=== PATIENT | female | born 1945 | race Caucasian/White ===

== ENCOUNTER → 2021-06-25 10:41 | Outpatient (CLI) | payer MEDICARE, SELFPAY ==
--- NOTE | 2021-06-25 10:56 | ART_ITS ---
Version 2 Reason For Study: PVD Procedure A bilateral lower extremity continuous wave Doppler with analog waveform analysis and ankle brachial indexes. Left Segmental Pressures Left brachial= 153mmHg. Left posterior tibial artery = 232mmHg. Left dorsalis pedis artery = 203mmHg. Left digit = 187 mmHg. The left dorsalis pedis waveforms are triphasic. The left posterior tibial artery waveforms are triphasic. Right Segmental Pressures Right brachial= 199mmHg. Right posterior tibial artery = 237mmHg. Right dorsalis pedis artery = 207mmHg. Right digit = 170 mmHg. The right dorsalis pedis waveforms are triphasic. The right posterior tibial artery waveforms are triphasic. Indices The right ankle brachial index by the posterior tibial artery is 1.19. The right ankle brachial index by the dorsalis pedis is 1.04. The right digital-brachial index is .85. The left ankle brachial index by the posterior tibial artery is 1.17. The left ankle brachial index by the dorsalis pedis is 1.02. The left digital-brachial index is .94. VL/Ankle Brachial Index Interpretation Summary Triphasic Doppler waveforms are noted at ankle level bilaterally. Resting ankle -bracial indices are normal bilaterally. Digital-brachial indices are normal bilaterally. There is no evidence of significant arterial occlusive disease in the lower ext remities bilaterally. Incidental note is made of a differential in brachial pressures bilaterally of more than 40 mmHg. Clinical correlation is advised. Ordering Physician: LANETTE CRUM Performed By: Oneil Bentley RVT
== END ==
DX: I73.9 Peripheral vascular disease, unspecified (principal)
CPT/HCPCS: 93922

== ENCOUNTER 2021-09-23 22:37 | Inpatient (IN) | payer MEDICARE, SELFPAY ==
[2021-09-23 22:37] VITALS: BP 171/117; PULSE 125; RESP 20; TEMP 36.2; O2SAT 84; BMI 29.2
[2021-09-23 22:45] VITALS: O2SAT 89
--- NOTE | 2021-09-23 22:50 | RAD_ITS ---
HISTORY: cough, SOB EXAMINATION/TECHNIQUE: XR Chest 1 View: Portable upright AP chest x-ray COMPARISON: None FINDINGS: LINES/DEVICES: None. LUNGS: Mild vascular prominence with hazy bilateral airspace opacities, probable left pleural effusion. MEDIASTINUM AND CARDIOVASCULAR STRUCTURES: Cardiomegaly. Central airways and mediastinal contour are unremarkable. BONES AND SOFT TISSUES: No acute bony abnormalities. RAD/Chest 1 View (Portable) IMPRESSION: Cardiomegaly with pulmonary edema and probable left pleural effusion. at 0026 Reported and signed by: Ventura Pedersen MD Electronically Signed: Ventura Pedersen MD at 0:25 EST Tel , Service support ,
--- NOTE | 2021-09-23 22:50 | EKG12_ITS ---
Test Reason : SOB Blood Pressure : / mmHG Vent. Rate : 126 BPM Atrial Rate : 126 BPM P-R Int : 112 ms QRS Dur : 082 ms QT Int : 398 ms P-R-T Axes : 000 057 059 degrees QTc Int : 576 ms Sinus tachycardia Otherwise normal ECG Confirmed by EROS SHARMA, MELO ([id number]), newspaper managing editor ADY ANN ([id number]) on 09/25/2021 11:44:11 AM Referred By: FIONA Confirmed By:MELO COONEY MD
--- NOTE | 2021-09-23 22:52 | ED.VIS.DYS ---
HPI History of Present Illness Chief Complaint: Shortness of Breath Informant: patient Narrative Narrative: Patient presents with cough and dyspnea. She states that about 2 days ago she started with some nasal congestion. It rapidly moved into a cough. She is now bringing up some yellow sputum. She is short of breath. She denies history of pulmonary disease. She is a remote smoker. She is not having chest pain. She has some mild chronic leg swelling but there is no change. Never had a DVT or PE. She has had elevated blood pressure and heart rate for a while. She evidently had a UTI and was on antibiotics a month or so ago and has had problems controlling blood sugars, heart rate and blood pressure ever since. She has had her Covid vaccines. She states they were a while ago and does not remember the exact date. She does not know anyone else who is ill. Nothing makes her symptoms better or worse. Patient has not lost taste or smell. She does not have myalgias. No known Covid exposure. Past medical history: Diabetes and hypertension Medications include lisinopril, hydralazine, glimepiride, Actos No known drug allergies No recent surgeries Lives with family, Quit smoking many years ago. PFSH PFS Home Medications aspirin 81 mg PO DAILY 09/24/21 [History Last Taken Unknown] glyburide 10 mg DAILY 09/24/21 [History Last Taken Unknown] hydralazine 10 mg PO 4X/DAY 09/24/21 [History Last Taken Unknown] lisinopril 20 mg DAILY 09/24/21 [History Last Taken Unknown] pioglitazone [Actos] 30 mg DAILY 09/24/21 [History Last Taken Unknown] Allergy/AdvReac Type Severity Reaction Status Date / Time No Known Allergies Allergy Verified 09/23/21 22:39 Family History Other Diabetes Heart disease Surgical History (Updated 09/24/21 @ 03:[address] Conor Franklin MD) H/O carotid endarterectomy Social History Smoking Status: Former smoker ROS ROS ED Constitutional Constitutional ED: Reports chills Eyes Eyes: Denies blurry vision ENT ENT ED: Reports rhinorrhea; Denies sore throat Cardiovascular Cardiovascular: Denies chest pain or palpitations Respiratory/Chest Respiratory/Chest: Reports cough, dyspnea, dyspnea on exertion and sputum Gastrointestinal Gastrointestinal: Denies abdominal pain, diarrhea, nausea or vomiting Genitourinary Genitourinary ED: Denies dysuria or hematuria Musculoskeletal Musculoskeletal: Denies myalgias Integumentary Denies rash Neurologic Neurologic: Denies headache(s) or weakness Endocrine Endocrinology: Denies polyuria Hematologic/Lymphatic Hematologic/Lymphatic: Denies easy bleeding or easy bruising Allergic/Immunologic Allergic/Immunologic ED: Denies mouth swelling or urticaria EXAM Physical Exam Const Vital Signs: 09/23/21 22:37 09/23/21 22:45 09/23/21 23:03 Temperature 97.2 F L Temperature Source Temporal Pulse Rate 125 H 124 H Respiratory Rate 20 H 20 H Respiratory Effort Respiratory Depth Respiratory Pattern Tachypnea Blood Pressure 171/117 H Blood Pressure Mean 135 Pulse Ox 84 89 Oxygen Delivery Method Room Air Nasal Cannula Oxygen Flow Rate (L/min) 3 09/23/21 23:42 09/23/21 23:56 09/24/21 01:02 Temperature 98.9 F Temperature Source Temporal Pulse Rate 123 H 115 H Respiratory Rate 22 H 22 H Respiratory Effort Short of Breath Labored Accessory Muscle Use Respiratory Depth Deep Respiratory Pattern Normal Blood Pressure 128/99 H Blood Pressure Mean 108 Pulse Ox 97 Oxygen Delivery Method Nasal Cannula Nasal Cannula Oxygen Flow Rate (L/min) 3 3 09/24/21 02:19 09/24/21 03:00 Temperature 99.1 F 99.1 F Temperature Source Temporal Temporal Pulse Rate 106 H 108 H Respiratory Rate 32 H 32 H Respiratory Effort Respiratory Depth Respiratory Pattern Blood Pressure 108/89 H 108/89 H Blood Pressure Mean 95 95 Pulse Ox 98 100 Oxygen Delivery Method Nasal Cannula Nasal Cannula Oxygen Flow Rate (L/min) 3 3 Patient does have increased work of breathing but can carry on a relatively normal conversation. Positive well nourished, well developed and obese General Appearance ED: well developed Nutritional Appearance: obese HEENT Reports moist mucous membranes atraumatic Eyes General Eye ED: Negative for pale conjunctiva or scleral icterus Neck no meningeal signs and No no JVD Resp No normal respiratory effort and No clear to auscultation bilaterally Resp Narrative: Increased respiratory effort and respiratory rate. She has rhonchi bilaterally but more on the right base. There is a hint of expiratory wheeze also. Effort and Inspection: Negative for pain with movement Auscultation: rhonchi, wheezes and diminished lung sounds; Negative for rales Cardio regular rhythm Rate: tachycardic GI non-tender and non-distended Auscultation: normoactive bowel sounds Palpation: soft Back/Spine no CVA tenderness and normal to inspection Extremity Extremity Narrative: Bilateral +1 edema that both her and her daughter state is normal. No asymmetry. No tenderness along the venous system or distended veins. There is some mild chronic venous stasis changes. General Extremety ED: Yes edema General Extremity: edema Neuro oriented x3 Neuro Narrative: Patient is not at all sleepy or lethargic. I mentioned to the patient that with her low oxygen saturations and illness there is a fair chance she will be admitted. She was not happy about this as an option. I explained we still need to do a work-up and treatment and we will address this as we get more information. Sensorium / Orientation: alert; Negative for lethargic or stuporous Psych mental status grossly normal Skin Lesions: no lesions Rashes: no rashes MDM MDM MDM Narrative Medical decision making narrative: Patient's blood work showed essentially a normal CBC. Electrolytes showed minimal elevation in the creatinine. Lactic acid is normal. Troponin is normal. Sodium has a nonspecific minimal decrease. BNP was high but not markedly high for her age. X-ray showed some signs of more consistent with pulmonary edema and slight effusion. Since the patient is tachypneic, tachycardic, hypoxic and positive Covid we did do a CTA of her chest. No pulmonary embolus was seen. Changes were more consistent with CHF than with Covid on her CT though. She was given a small dose of Lasix as she has never been on this before. The combination of the meds she has been given in time have helped. Her heart rate is down significantly. Her blood pressure is down but she is not hypotensive. Her oxygen level is improved on 3 L and she feels more comfortable. We tried to walk her but she was just too weak to get up. I do not think she would be able to maintain saturations walking anyway. She desats off oxygen just in the bed. I have hospitalist on page regarding admission. I will discuss possibility of adding a PCR test also. Lab Data Attestation: I reviewed the patient's lab results. Labs: Laboratory Results - last 24 hr 09/23/21 09/23/21 09/23/21 23:05 23:05 23:05 WBC 5.8 RBC 5.16 Hgb 14.6 Hct 45.3 MCV 87.8 MCH 28.3 MCHC 32.2 RDW Std Deviation 44.6 H RDW Coeff of Gerard 13.8 Plt Count 100 L MPV 11.6 Immature Gran % (Auto) 0.300 Neut % (Auto) 83.5 H Lymph % (Auto) 8.7 L [place] % (Auto) 7.2 Eos % (Auto) 0.0 Baso % (Auto) 0.3 Absolute Neuts (auto) 4.9 Absolute Lymphs (auto) 0.51 L Nucleated RBC % 0 Differential Comment SCANNED Sodium 133 L Potassium 3.8 Chloride 97 L Carbon Dioxide 26.0 Anion Gap 10 BUN 16 Creatinine 1.16 H Estim Creat Clear Calc 35.20 Est GFR (MDRD) Af Amer 59 L Est GFR (MDRD) Non-Af 49 L BUN/Creatinine Ratio 13.8 Glucose 334 H Lactic Acid 1.8 Calcium 8.8 Troponin I High Sens 50 B-Natriuretic Peptide 09/23/21 23:05 WBC RBC Hgb Hct MCV MCH MCHC RDW Std Deviation RDW Coeff of Gerard Plt Count MPV Immature Gran % (Auto) Neut % (Auto) Lymph % (Auto) [place] % (Auto) Eos % (Auto) Baso % (Auto) Absolute Neuts (auto) Absolute Lymphs (auto) Nucleated RBC % Differential Comment Sodium Potassium Chloride Carbon Dioxide Anion Gap BUN Creatinine Estim Creat Clear Calc Est GFR (MDRD) Af Amer Est GFR (MDRD) Non-Af BUN/Creatinine Ratio Glucose Lactic Acid Calcium Troponin I High Sens B-Natriuretic Peptide 488.1 H Radiography Diagnostic Testing: Clinical Impression(s) from Imaging Studies Chest X-Ray 09/23/21 22:50 IMPRESSION: Cardiomegaly with pulmonary edema and probable left pleural effusion. at 0026 Reported and signed by: Ventura Pedersen MD Electronically Signed: Ventura Pedersen MD at 0:25 EST Tel , Service support , Chest CTA 09/24/21 00:45 IMPRESSION: Congestive heart failure. There is no demonstrated pulmonary embolism or arterial dissection. Electronically Signed: Sandra Nuñez MD at 1:42 EST Tel , Service support , EKG Initial EKG: Comments: EKG done for dyspnea read by me shows sinus rhythm with tachycardic rate at 126. No ectopy. Nonspecific ST and T wave flattening but no elevation or depression. FL interval, QRS duration are normal but QTc is long at 576 Discharge Plan Dx/Rx/DC Orders Clinical Impression: Hypoxia, CHF (congestive heart failure), SARS-CoV-2 positive Disposition Disposition: Acute Care [facility] Discharge Date/Time: 09/24/21 03:54
[2021-09-23 23:03] VITALS: PULSE 124; RESP 20
[2021-09-23] MEDS: Ipratropium/Albuterol Sulfate 3 ML AMPUL.NEB INHALATION (23:03)
[2021-09-23 23:17] LABS: Absolute Lymphocyte Count 0.51 X10^3/uL (0.83-4.51); Absolute Neutrophil Count 4.9 X10^3/uL (2.0-7.7); Basophil# 0.02 X10^3/uL; Basophil% 0.3 % (0-1); Hematocrit 45.3 % (37-47); Hemoglobin 14.6 g/dL (12.0-15.0); Lymphocyte # 0.51 X10^3/ul (0.83-4.51); Lymphocyte % 8.7 % (19-41); Mean Corp Hgb Conc 32.2 g/dL (32-36); Mean Corpuscular Hgb 28.3 pg (27.0-32.0); Mean Corpuscular Volume 87.8 fL (81-99); Mean Platelet Vol. 11.6 fl (6.2-12.0); Monocyte# 0.42 X10^3/uL; Monocyte% 7.2 % (0-10); NRBC Flagged by Analyzer 0 % (0-5); Neutrophil # 4.87 X10^3/uL (2.7-7.7); Neutrophil % 83.5 % (47-70); POSITIVE DIFFERENTIAL YES; Platelet Count 100 K/mm3 (150-450); RBC Distribution Width CV 13.8 % (11.6-14.6); RBC Distribution Width SD 44.6 fl (35.1-43.9); Red Blood Count 5.16 M/mm3 (4.2-5.4); White Blood Count 5.8 K/mm3 (4.4-11.0)
[2021-09-23 23:35] LABS: Anion Gap 10 (5-15); BUN 16 mg/dL (7-18); BUN/Creat Ratio 13.8 RATIO (10-20); Calcium,Total 8.8 mg/dL (8.5-10.1); Chloride 97 mmol/L (98-107); Creatinine, Serum 1.16 mg/dL (0.55-1.02); EST Glomerular Filtration Rate 49 mL/min (>60); Est Glom Filt Rate - Afr Amer 59 mL/min (>60); Glucose 334 mg/dL (74-106); Potassium 3.8 mmol/L (3.5-5.1); Sodium Level 133 mmol/L (136-145); Troponin-I HS 50 pg/mL (3.0-54.0)
[2021-09-23 23:42] VITALS: O2SAT 93
--- NOTE | 2021-09-23 23:44 | ED.RN ---
pt. refused Covid swab. States they want their doctor at [facility] to do it.
[2021-09-23 23:47] LABS: Differential Indicated SCAN CRITERIA MET
[2021-09-23 23:50] LABS: Lactic Acid 1.8 mmol/L (0.4-1.9)
--- NOTE | 2021-09-23 23:54 | ED.RN ---
After conversation about need for Covid swab for admission or transfer, pt. agreed to allow nurse to test for Covid.
[2021-09-23] MEDS: Albuterol 2.5 MG/3 ML VIAL.NEB. INHALATION (23:55)
[2021-09-23 23:56] VITALS: PULSE 123; RESP 22
[2021-09-24] VITALS (20 sets, daily range): BP systolic 108–159; BP diastolic 63–99; PULSE 70–115; RESP 16–32; TEMP 36.7–37.4; O2SAT 93–100; BMI 37.1
[2021-09-24 00:15] LABS: Differential Comment SCANNED
[2021-09-24 00:25] LABS: BNP,B-Type NATRIURETIC PEPTIDE 488.1 pg/mL (0-100)
--- NOTE | 2021-09-24 00:45 | CT_ITS ---
STUDY: CTA CHEST REASON FOR EXAM: Female, 76 years old. ?PE RADIATION DOSAGE (If Supplied By Facility): CTDIvol = ( 12.23 ) mGy, DLP = ( 472.18 ) mGycm TECHNIQUE: The examination was performed with the intravenous administration of IV 100mL Isovue-370. Post-processing of the angiographic images was performed, with multiplanar reformation and 3D reconstruction. Individualized dose optimization techniques were used for this CT. COMPARISON: None. FINDINGS: Normal enhancement of the main pulmonary artery and right and left pulmonary arteries. Normal enhancement of the bilateral peripheral pulmonary arteries. There is no demonstrated pulmonary embolism. Normal thoracic aorta and visualized great vessels. There is no demonstrated aortic dissection. Normal heart and pericardium. Normal mediastinum. Normal hilar regions. Normal visualized trachea and bronchi. The lungs are well expanded. There is diffuse interstitial thickening in both lungs more prominent in the lung bases consistent with pulmonary edema. Small bilateral pleural effusions. Normal chest wall structures. Normal osseous structures. Normal visualized upper abdomen. CT/CTA Chest W/WO Contrast IMPRESSION: Congestive heart failure. There is no demonstrated pulmonary embolism or arterial dissection. Electronically Signed: Sandra Nuñez MD at 1:42 EST Tel , Service support ,
[2021-09-24] MEDS: dexAMETHasone 10 MG/ML Vial 6 MG IV (01:01)
[2021-09-24] MEDS: Furosemide 20 MG/2 ML VIAL IV ×3 (02:15→16:35)
--- NOTE | 2021-09-24 03:10 | PCM.HP.STD ---
[facility] - General General Date of Admission: 09/24/21 HPI Narrative PITER ZUÑIGA, is a 76 F with a significant history of hypertension and diabetes mellitus who presents to the emergency department with 1 day history of persistent severe shortness of breath. A day before her shortness of breath she had a productive cough of yellow sputum. She still continues to have a productive cough. She has anorexia. She denies loss of taste or smell. She reports having COVID-19 vaccination a couple of months ago. She had only 1 dose of the vaccination. She is unable to tell which of the covid vaccination she had. Patient is not interested in having a COVID booster shot. She denies myalgia. She reports fatigue. At emergent department patient was hypoxic and required supplemental oxygenation. An attempt was made for patient to walk at the ED but patient was too weak even to get up. [facility] Home Medications aspirin 81 mg PO DAILY 09/24/21 [History Last Taken Unknown] glyburide 10 mg DAILY 09/24/21 [History Last Taken Unknown] hydralazine 10 mg PO 4X/DAY 09/24/21 [History Last Taken Unknown] lisinopril 20 mg DAILY 09/24/21 [History Last Taken Unknown] pioglitazone [Actos] 30 mg DAILY 09/24/21 [History Last Taken Unknown] Allergy/AdvReac Type Severity Reaction Status Date / Time No Known Allergies Allergy Verified 09/23/21 22:39 Family History Other Diabetes Heart disease Surgical History H/O carotid endarterectomy Social History Smoking Status: Former smoker ROS ROS Narrative Constitutional: Reports fatigue. Reports chills. Reports anorexia. Eyes: Denies blurry vision, change in eye color, change in vision, discharge from eye(s), double vision, erythema, eye pain, loss of vision or other HEENT: Denies abnormal hearing, dysphagia, ear pain, epistaxis, headache(s), hearing loss, sore throat or other Cardiovascular: Denies chest pain or palpitations. Respiratory/Chest: Reports coughing. Reports yellowish sputum production. Reports wheezing. Gastrointestinal: Denies abdominal pain, coffee ground emesis, constipation, diarrhea, dyspepsia, hematemesis, hematochezia, loose stools, melena, nausea, vomiting or other Genitourinary: Denies burning urination, difficulty urinating, dysuria, hematuria, nocturia, urinary frequency, urinary hesitancy, urinary incontinence, urinary urgency or other Musculoskeletal: Denies arthralgias, back pain, joint pain, joint stiffness, joint swelling, myalgias, neck pain or other Neurologic: Denies abnormal gait, abnormal speech, confusion, disequilibrium, dizziness, focal weakness, headache(s), numbness, paresthesias, seizure-like activity, seizures, syncope, tingling, tremor(s) or other Psychiatric: Denies anxiety, depression, homicidal ideation, suicidal ideation or other Endocrinology: Denies change in body appearance, cold intolerance, excessive sweating, heat intolerance, polydipsia, polyuria or other Hematologic/Lymphatic: Denies anemia, easy bleeding, easy bruising, lymphadenopathy or other Integumentary: Denies rashes Allergic/Immunologic: Denies rhinitis, hives, eczema, asthma or other Vital Signs Vital Signs Vital Signs: 09/23/21 22:37 09/23/21 22:45 09/23/21 23:03 Temperature 97.2 F L Temperature Source Temporal Pulse Rate 125 H 124 H Respiratory Rate 20 H 20 H Respiratory Effort Respiratory Depth Respiratory Pattern Tachypnea Blood Pressure 171/117 H Blood Pressure Mean 135 Pulse Ox 84 89 Oxygen Delivery Method Room Air Nasal Cannula Oxygen Flow Rate (L/min) 3 09/23/21 23:42 09/23/21 23:56 09/24/21 01:02 Temperature 98.9 F Temperature Source Temporal Pulse Rate 123 H 115 H Respiratory Rate 22 H 22 H Respiratory Effort Short of Breath Labored Accessory Muscle Use Respiratory Depth Deep Respiratory Pattern Normal Blood Pressure 128/99 H Blood Pressure Mean 108 Pulse Ox 97 Oxygen Delivery Method Nasal Cannula Nasal Cannula Oxygen Flow Rate (L/min) 3 3 09/24/21 02:19 Temperature 99.1 F Temperature Source Temporal Pulse Rate 106 H Respiratory Rate 32 H Respiratory Effort Respiratory Depth Respiratory Pattern Blood Pressure 108/89 H Blood Pressure Mean 95 Pulse Ox 98 Oxygen Delivery Method Nasal Cannula Oxygen Flow Rate (L/min) 3 Weight Weight: 74.843 kg Body Mass Index (BMI) 29.2 Physical Exam Narrative Physical exam: General: Well-nourished, well-developed. Head: Normocephalic, atraumatic, no tenderness Eyes: PERRLA, EOMI ENT, no trauma, moist mucous membranes, no rhinorrhea Neck: Nontender, full range of motion, no spinal tenderness, deformities, step-off CVS: Tachycardia, S1-S2 present. No murmur, gallop or rub. Respiratory : Tachypnea, wheezes and rhonchi. Chest wall nontender. Abdomen: Soft, nontender, nondistended, normal bowel sounds, no masses : Deferred Back: Nontender, no CVA tenderness, no midline spinal tenderness, deformities, step-offs Extremities: Nontender full range of motion, no trauma Skin: Normal color, no trauma, abrasions Neuro: Alert, oriented, cranial nerves II through XII grossly intact. Psychiatry: Normal mood. Normal affect. Not depressed. Not anxious. Results Lab / Micro Data Result Diagrams: 09/23/21 23:05 09/23/21 23:05 Labs: Laboratory Results - last 24 hr 09/23/21 23:05: WBC 5.8, RBC 5.16, Hgb 14.6, Hct 45.3, MCV 87.8, MCH 28.3, MCHC 32.2, RDW Std Deviation 44.6 H, RDW Coeff of Gerard 13.8, Plt Count 100 L, MPV 11.6, Immature Gran % (Auto) 0.300, Neut % (Auto) 83.5 H, Lymph % (Auto) 8.7 L, Davis % (Auto) 7.2, Eos % (Auto) 0.0, Baso % (Auto) 0.3, Absolute Neuts (auto) 4.9, Absolute Lymphs (auto) 0.51 L, Nucleated RBC % 0, Differential Comment SCANNED 09/23/21 23:05: Sodium 133 L, Potassium 3.8, Chloride 97 L, Carbon Dioxide 26.0, Anion Gap 10, BUN 16, Creatinine 1.16 H, Estim Creat Clear Calc 35.20, Est GFR (MDRD) Af Amer 59 L, Est GFR (MDRD) Non-Af 49 L, BUN/Creatinine Ratio 13.8, Glucose 334 H, Calcium 8.8, Troponin I High Sens 50 09/23/21 23:05: Lactic Acid 1.8 11/24/21 23:05: B-Natriuretic Peptide 488.1 H Micro: Microbiology 09/23/21 23:51 Nasal Secretion SARS-CoV-2 Antigen (Rapid) - Final SARS-CoV-2 (COVID 19) Radiology Impression Chest X-Ray 09/23/21 22:50 IMPRESSION: Cardiomegaly with pulmonary edema and probable left pleural effusion. at 0026 Reported and signed by: Ventura Pedersen MD Electronically Signed: Ventura Pedersen MD at 0:25 EST Tel , Service support , Chest CTA 09/24/21 00:45 IMPRESSION: Congestive heart failure. There is no demonstrated pulmonary embolism or arterial dissection. Electronically Signed: Sandra Nuñez MD at 1:42 EST Tel , Service support , Assessment & Plan Assessment/Plan (1) Acute hypoxemic respiratory failure: (2) Bronchitis due to COVID-19 virus: (3) CHF (congestive heart failure): QUALIFIERS: Heart failure chronicity: acute Heart failure type: unspecified Qualified Code(s): I50.9 - Heart failure, unspecified (4) SARS-CoV-2 positive: PLAN: Acute hypoxemic respiratory failure Likely secondary to SARS pneumonia and congestive heart failure Rapid Covid antigen at the emergent department was positive. PCR Covid was ordered emergency department for confirmation. PCR Covid is pending. Review of labs showed normal white counts but with neutrophilia and lymphopenia. Platelet count is mildly decreased at 100. Chest x-ray and chest CTA image was independently interpreted and agree with radiologist interpretation above. Chest x-ray and chest CTA showed vascular congestion and pulmonary edema with small bilateral pleural effusion. Received Lasix IV at the emergency department and continued. Supplemental potassium ordered. Received Decadron emergency department and continued. Daily weights ordered. Fluid restriction ordered. Strict intake and outputs ordered. Diabetes mellitus Patient with hyperglycemia on presentation Glipizide continued. Progress is on hold secondary to pulmonary edema. Basal insulin ordered. Accu-Chek QA CHS with correction scale insulin ordered. Cardiac with calorie control diet ordered. Hypertension Blood pressure is not within goal Lisinopril and hydralazine continued. Trend blood pressure and adjust blood pressure medications. DVT prophylaxis: Subcutaneous Lovenox ordered. Of note platelet count is 100. Trend CBC and titrate anticoagulants as necessary. Charges/Coding Visit Charges Inpatient E&M: 38514 Init Hosp L3
[2021-09-24] MEDS: guaiFENesin 600 MG Tablet PO ×3 (04:43→22:06)
[2021-09-24 06:29] LABS: Absolute Lymphocyte Count 0.31 X10^3/uL (0.83-4.51); Absolute Neutrophil Count 3.3 X10^3/uL (2.0-7.7); Hematocrit 42.1 % (37-47); Hemoglobin 13.6 g/dL (12.0-15.0); Lymphocyte # 0.31 X10^3/ul (0.83-4.51); Lymphocyte % 8.3 % (19-41); Mean Corp Hgb Conc 32.3 g/dL (32-36); Mean Corpuscular Hgb 27.9 pg (27.0-32.0); Mean Corpuscular Volume 86.4 fL (81-99); Mean Platelet Vol. 10.8 fl (6.2-12.0); Monocyte# 0.13 X10^3/uL; Monocyte% 3.5 % (0-10); NRBC Flagged by Analyzer 0 % (0-5); Neutrophil # 3.26 X10^3/uL (2.7-7.7); Neutrophil % 87.7 % (47-70); POSITIVE DIFFERENTIAL YES; Platelet Count 102 K/mm3 (150-450); RBC Distribution Width SD 44.8 fl (35.1-43.9); Red Blood Count 4.87 M/mm3 (4.2-5.4); White Blood Count 3.7 K/mm3 (4.4-11.0)
[2021-09-24 06:41] LABS: Differential Indicated SCAN CRITERIA MET
[2021-09-24 07:05] LABS: Bedside Glucose 291 mg/dL (70-110)
--- NOTE | 2021-09-24 07:07 | ECHOD_ITS ---
Reason For Study: CHF Procedure This was a limited 2D transthoracic echocardiogram. The exam was abbreviated due to the COVID 19 protocol. Exam performed portable in patient room. Left Ventricle Normal LV size. The estimated ejection fraction is 35 %. There is moderate global hypokinesis of the left ventricle. Right Ventricle Normal RV size. Mild global right ventricular systolic dysfunction. Atria Normal left atrium. Normal right atrium. Mitral Valve Normal mitral valve. Mild (1+) eccentric mitral valve insufficiency. Tricuspid Valve Normal tricuspid valve. Mild tricuspid valve insufficiency. Pulmonary artery systolic pressure is 34 mmHg. Aortic Valve Trisinus/trileaflet aortic valve. Great Vessels Normal aortic root. Pericardium/Pleural No pericardial effusion. MMode/2D Measurements & Calculations LVIDd: 5.4 cm IVSd: 0.99 cm LVIDs: 4.6 cm LVPWd: 1.3 cm FS: 15.7 % Doppler Measurements & Calculations TR max bronson: 270.1 cm/sec TR max P.2 mmHg ECHO/Echo Complete Interpretation Summary Normal LV size. The estimated ejection fraction is 35 %. There is moderate global hypokinesis of the left ventricle. Pulmonary artery systolic pressure is 34 mmHg. Ordering Physician: Annabelle Patel Performed By: Patricia Meraz, SANDEE, RVT
[2021-09-24 07:25] LABS: ALB/GLOB Ratio 0.8 RATIO (0.9-2.4); AST(SGOT) 49 U/L (15-37); Alanine Aminotransfer ALT/SGPT 54 U/L (13-56); Albumin, Serum 2.9 g/dL (3.2-5.0); Alkaline Phosphatase 97 U/L (45-117); Anion Gap 10 (5-15); BUN 21 mg/dL (7-18); BUN/Creat Ratio 17.8 RATIO (10-20); Calcium,Total 8.4 mg/dL (8.5-10.1); Chloride 99 mmol/L (98-107); Creatinine, Serum 1.18 mg/dL (0.55-1.02); EST Glomerular Filtration Rate 48 mL/min (>60); Est Glom Filt Rate - Afr Amer 58 mL/min (>60); Globulin 3.7 g/dL (2.2-4.2); Glucose 311 mg/dL (74-106); Potassium 3.8 mmol/L (3.5-5.1); Protein, Total 6.6 g/dL (6.4-8.2); Sodium Level 135 mmol/L (136-145)
[2021-09-24 08:20] LABS: Troponin-I HS 144 pg/mL (3.0-54.0)
[2021-09-24 08:20] LABS: Troponin-I HS 148 pg/mL (3.0-54.0)
[2021-09-24 08:44] LABS: Procalcitonin 0.38 ng/mL (0.00-0.09)
[2021-09-24] MEDS: Lisinopril 20 MG Tablet PO (10:43)
[2021-09-24] MEDS: dexAMETHasone 2 MG TABLET 6 MG PO (10:43)
[2021-09-24] MEDS: hydrALAZINE 10 MG Tablet PO ×4 (10:43→22:06)
[2021-09-24] MEDS: Nystatin Powder 15gm Bottle 1 APPLIC TOPICAL ×2 (10:44→22:05)
[2021-09-24] MEDS: Enoxaparin 30 MG/0.3 ML Syringe SC ×2 (10:53→22:05)
[2021-09-24] MEDS: Insulin Lispro 100 UNIT/ML INSULN.PEN SC ×3 (10:58→22:12)
[2021-09-24 11:43] LABS: Troponin-I HS 125 pg/mL (3.0-54.0)
[2021-09-24 11:45] LABS: Bedside Glucose 399 mg/dL (70-110)
--- NOTE | 2021-09-24 12:24 | PCM.HOSP.N ---
Hospitalist Note Patient was admitted early this morning. She came in with cough and dyspnea. She reported that it started approximately 2 days prior to admission and she did have some associated nasal congestion. She has been bringing up some yellow sputum and is short of breath. She denied any history of pulmonary disease but does have a remote history of smoking. She admits to chronic leg swelling. She has had her Covid vaccinations but is unclear what the exact dates are. She has not had her booster. Her Covid rapid test was negative however her PCR was positive. She was hypoxic and placed on 3 L on admission. Today as she is down to room air with oxygen saturations at 93 to 98%. She clinically reports she feels much better after diuresis. I will continue diuresis today. She was started on Decadron and remdesivir as she was hypoxic and PCR positive for Covid however as noted above I really think that this is more likely related to her heart failure with her rapid improvement and if she remains stable and inclined not to discharge her with Decadron especially given her poor glucose control. We did try to start her on some insulin however she is resistant and would just like to take her home glyburide. She is on Actos as well and I am going to discontinue this given her acute heart failure presentation as they can called fluid retention and could be contributing to her clinical picture. I did explain to her that it was not convinced that the glyburide was going to be able to address her marked hyperglycemia. Given the Decadron her blood sugars are in the 300 range but she is insistent she does not want to use insulin at this time. If she remains stable and on room air in the next 24 hours and diuresis well I do anticipate we may be able to discharge her tomorrow. I have ordered an echocardiogram which will be performed tomorrow. Given her leukopenia, thrombocytopenia, mild transaminase elevation and mild hyponatremia I do suspect that she does have acute Covid infection and if she remains off oxygen at discharge would recommend 10 further days of isolation. We will reevaluate her for discharge tomorrow.
[2021-09-24] MEDS: Senna/Docusate Sodium 1 Tablet 2 TABLET PO (13:55)
[2021-09-24 18:10] LABS: Bedside Glucose 277 mg/dL (70-110)
[2021-09-24] MEDS: MELATONIN 3 MG TABLET PO (22:06)
[2021-09-24] MEDS: Carvedilol 6.25 MG Tablet PO (22:06)
[2021-09-24 23:55] LABS: Bedside Glucose 244 mg/dL (70-110)
[2021-09-25] VITALS (16 sets, daily range): BP systolic 112–169; BP diastolic 62–119; PULSE 91–118; RESP 16–33; TEMP 36.4–37.4; O2SAT 92–100
[2021-09-25 06:56] LABS: Absolute Lymphocyte Count 0.94 X10^3/uL (0.83-4.51); Absolute Neutrophil Count 5.6 X10^3/uL (2.0-7.7); Hematocrit 42.9 % (37-47); Hemoglobin 14.2 g/dL (12.0-15.0); Lymphocyte # 0.94 X10^3/ul (0.83-4.51); Lymphocyte % 13.7 % (19-41); Mean Corp Hgb Conc 33.1 g/dL (32-36); Mean Corpuscular Hgb 28.7 pg (27.0-32.0); Mean Corpuscular Volume 86.8 fL (81-99); Mean Platelet Vol. 11.2 fl (6.2-12.0); Monocyte# 0.37 X10^3/uL; Monocyte% 5.4 % (0-10); NRBC Flagged by Analyzer 0 % (0-5); Neutrophil # 5.55 X10^3/uL (2.7-7.7); Neutrophil % 80.6 % (47-70); Platelet Count 119 K/mm3 (150-450); RBC Distribution Width CV 13.6 % (11.6-14.6); RBC Distribution Width SD 43.6 fl (35.1-43.9); Red Blood Count 4.94 M/mm3 (4.2-5.4); White Blood Count 6.9 K/mm3 (4.4-11.0)
[2021-09-25 07:15] LABS: Bedside Glucose 86 mg/dL (70-110)
[2021-09-25 07:20] LABS: Anion Gap 9 (5-15); BUN 36 mg/dL (7-18); BUN/Creat Ratio 27.3 RATIO (10-20); Calcium,Total 8.5 mg/dL (8.5-10.1); Chloride 102 mmol/L (98-107); Creatinine, Serum 1.32 mg/dL (0.55-1.02); EST Glomerular Filtration Rate 42 mL/min (>60); Est Glom Filt Rate - Afr Amer 51 mL/min (>60); Estimated Creatinine Clearance 30.93 ml/min; Glucose 84 mg/dL (74-106); Potassium 3.6 mmol/L (3.5-5.1); Sodium Level 141 mmol/L (136-145)
[2021-09-25] MEDS: Carvedilol 6.25 MG Tablet PO ×2 (09:39→21:47)
[2021-09-25] MEDS: hydrALAZINE 10 MG Tablet PO ×3 (09:39→21:47)
[2021-09-25] MEDS: Potassium Chloride Oral Tablet 20 MEQ PO (09:39)
[2021-09-25] MEDS: guaiFENesin 600 MG Tablet PO ×2 (09:40→21:47)
[2021-09-25] MEDS: Furosemide 40 MG Tablet PO (09:40)
[2021-09-25] MEDS: dexAMETHasone 2 MG TABLET 6 MG PO (09:40)
[2021-09-25] MEDS: Aspirin 81 MG TAB.CHEW PO (09:40)
[2021-09-25] MEDS: Lisinopril 20 MG Tablet PO (09:40)
[2021-09-25] MEDS: Enoxaparin 30 MG/0.3 ML Syringe SC ×2 (09:45→21:47)
[2021-09-25] MEDS: Nystatin Powder 15gm Bottle 1 APPLIC TOPICAL ×2 (09:47→21:48)
[2021-09-25 10:01] LABS: Bedside Glucose 129 mg/dL (70-110)
--- NOTE | 2021-09-25 10:34 | RAD_ITS ---
INDICATION: SOB EXAMINATION/TECHNIQUE: X-RAY - XR Chest 1 View COMPARISON: Chest radiograph from 09/23/2021. CT chest from 09/24/2021. FINDINGS: LINES/DEVICES: None. Stable cardiomegaly. Bilateral pulmonary vascular congestion. Trace bilateral pleural effusions. No sizable pneumothorax. Bones and soft tissues are unchanged. RAD/Chest 1 View (Portable) IMPRESSION: Stable cardiomegaly and findings of congestive heart failure. Electronically Signed: Dennis Aguila MD at 10:58 EST Tel , Service support ,
[2021-09-25] MEDS: Ipratropium/Albuterol Sulfate 3 ML AMPUL.NEB INHALATION ×3 (11:00→20:18)
--- NOTE | 2021-09-25 11:35 | CASEMGMT ---
RN JOVAN HIGHBALLER CM to room to meet with patient for initial transition planning/care coordination assessment. MIRIAM ALDANA introduced self and role at [facility]. Pt voices understanding and consents to assessment at this time. Pt resting in bed w/BIPAP in place. Pt is A/O at this time and answers all questions appropriately. Care providers, pharmacy, and demographics verified/updated at this time. PCP: Joshua Guan Specialists: None Preferred Pharmacy: [facility] Retail Insurance:MCR A/B Prescription Benefit: None Living Will/HPOA: Pt does not currently have LW/HCPOA and declines info at this time. LNOK: Dtr, Fany. SonAlfred Living Arrangements: Lives w/her daughter, Fany, in one-story home w/one step to enter. Daughter has not been ill. Discussed importance of self-isolating from her daughter when she returns home. She states they do have 2 bathrooms and will self isolate as best as we can. Independent prior to recent illness. Transportation: Pt states drives self and states no transportation concerns at this time. Daughter will take her home @ d/c. DME: States has the following DME: functioning glucometer w/supplies and BP machine. Recommended to get pulse ox. Does not have Home o2. Provided w/list of local DME companies and pt has no preference. HHC/SNF: No hx of either. PT/OT evals pending. Follow for possible need of HHC. Pt wishes to return home and states has no concerns with going home at time of discharge. CM to follow for home oxygen needs and any further discharge planning/needs. Pt voices no further concerns/needs at this time. Advised pt to ask for CM if any further questions/concerns/needs arise. Voices understanding. PLAN: Pt wishes to return home @ d/c. CM to follow for Home O2 needs @ discharge. PT/OT evals pending. Follow for possible need of HHC. Pt does not have prescription coverage. Follow for cost of any new prescriptions at discharge. Dejuan TROY RN, CM
[2021-09-25 12:40] LABS: Bedside Glucose 211 mg/dL (70-110)
[2021-09-25] MEDS: Furosemide 40 MG/4 ML Vial IV ×2 (14:05→17:26)
[2021-09-25 15:32] LABS: Pathologist Review Reviewed
--- NOTE | 2021-09-25 16:54 | CASEMGMT ---
Green sheet on chart for home oxygen, if pt qualifies. Isabella PINEDA CM
--- NOTE | 2021-09-25 17:04 | PCM.PN.HOSP ---
Subjective Subjective Patient with increased respiratory rate today. She states she is much more short of breath and this started early this morning. Her oxygen saturations were stable on room air but I did feel that she would fatigue if she continued at the rate she was breathing. She initially declined noninvasive ventilation but we were able to talk her into be placed on BiPAP at which time her vital signs normalized and her respiratory rate decreased. She did tolerate the BiPAP well. Objective Data Objective Data Vital Signs: Vital Signs Temp Pulse Resp BP Pulse Ox 97.5 F L 98 33 H 113/76 92 09/25/21 08:20 09/25/21 16:16 09/25/21 16:16 09/25/21 11:19 09/25/21 16:16 Oxygen Flow Rate (L/min) 6 Oxygen Delivery Method Nasal Cannula Weight: 93.6 kg Body Mass Index (BMI) 37.1 Intake & Output: Intake and Output for Last 24 Hours 09/23/21 09/24/21 09/25/21 23:59 23:59 23:59 Intake Total 680 / 800 240 / 240 Output Total 1575 / 1575 600 / 600 Balance -895 / -775 -360 / -360 Lab / Micro Data Result Diagrams: 09/25/21 06:28 09/25/21 06:28 Labs: Laboratory Results - last 24 hr 09/24/21 05:58: Diff Path Review Reviewed 09/24/21 16:30: POC Glucose 277 H 09/24/21 22:11: POC Glucose 244 H 09/25/21 06:28: WBC 6.9, RBC 4.94, Hgb 14.2, Hct 42.9, MCV 86.8, MCH 28.7, MCHC 33.1, RDW Std Deviation 43.6, RDW Coeff of Gerard 13.6, Plt Count 119 L, MPV 11.2, Immature Gran % (Auto) 0.300, Neut % (Auto) 80.6 H, Lymph % (Auto) 13.7 L, [place] % (Auto) 5.4, Eos % (Auto) 0.0, Baso % (Auto) 0.0, Absolute Neuts (auto) 5.6, Absolute Lymphs (auto) 0.94, Nucleated RBC % 0 09/25/21 06:28: Sodium 141, Potassium 3.6, Chloride 102, Carbon Dioxide 30.0, Anion Gap 9, BUN 36 H, Creatinine 1.32 H, Estim Creat Clear Calc 30.93, Est GFR (MDRD) Af Amer 51 L, Est GFR (MDRD) Non-Af 42 L, BUN/Creatinine Ratio 27.3 H, Glucose 84, Calcium 8.5 09/25/21 07:10: POC Glucose 86 09/25/21 09:51: POC Glucose 129 H 09/25/21 11:13: POC Glucose 211 H Micro: Microbiology 09/23/21 23:51 Nasal Secretion SARS-CoV-2 Antigen (Rapid) - Final SARS-CoV-2 (COVID 19) Radiography Diagnostic Testing: Radiology Impression Echocardiogram 09/24/21 07:07 Interpretation Summary Normal LV size. The estimated ejection fraction is 35 %. There is moderate global hypokinesis of the left ventricle. Pulmonary artery systolic pressure is 34 mmHg. Ordering Physician: Annabelle Patel Performed By: Patricia Meraz, SANDEE, RVT Chest X-Ray 09/25/21 10:34 IMPRESSION: Stable cardiomegaly and findings of congestive heart failure. Electronically Signed: Dennis Aguila MD at 10:58 EST Tel , Service support , Physical Exam Const alert and oriented x3 Constitutional Narrative: Older white female sitting up in bed, appears in mild to moderate respiratory distress with tachypnea, significant conversational dyspnea which is markedly different than the last 24 hours Exam Limitations: no limitations Nutritional Appearance: overweight HEENT head/scalp atraumatic and moist oral mucous membranes HEENT Narrative: Edentulous, Mallampati 2-3, no thrush Head and Scalp: normocephalic Eyes PERRL, EOMs intact bilaterally and conjunctivae normal Eyes Narrative: No scleral icterus Neck no lymphadenopathy and supple Neck Narrative: Trachea midline, short thick neck, no thyroid enlargement noted Resp no retractions, No no use of accessory muscles and clear to auscultation bilaterally Resp Narrative: Diffusely diminished with few crackles at bases and respiratory distress with Auscultation: crackles Cardio regular rhythm, S1 normal heart sound, S2 normal heart sound, no murmurs, no rub, no gallops, no clicks and no JVD Cardio Narrative: Mild tachycardia GI normal to inspection, nondistended, normoactive bowel sounds, soft to palpation, non-tender and non-distended Extremity Extremity Narrative: Trace bilateral lower extremity pitting edema that is slightly better than in the last 24 hours, no cyanosis or clubbing Peripheral Pulses: Yes pulses 2+ throughout Skin no rashes or lesions noted, no wounds, skin turgor normal, no jaundice, no petechiae and no mottling Neuro oriented x3, moves all extremities and no focal motor deficits Sensorium / Orientation: awake and alert Speech: speech normal Psych Mood & Affect: anxious Assessment & Plan Assessment/Plan (1) Acute hypoxemic respiratory failure: (2) CHF (congestive heart failure): QUALIFIERS: Heart failure type: unspecified Heart failure chronicity: acute Qualified Code(s): I50.9 - Heart failure, unspecified (3) SARS-CoV-2 positive: (4) Thrombocytopenia: (5) Elevated troponin I level: PLAN: Acute hypoxic respiratory failure secondary to COVID-19 infection/acute decompensated systolic heart failure -Symptoms started on 09/22/2021 and given this patient will need isolation until 10/12/2021 -Patient is willing to utilize some BiPAP to decrease respiratory distress -CODE STATUS reviewed with the patient she would like to be DNR CCA no intubation understands that she will without these interventions if needed and is accepting of that--> family is aware of this CODE STATUS although they say they are in disagreement with this but respect her wishes -Patient is nonvaccinated -Continue Decadron day 2 of 10 -Family does not want remdesivir to be given -If patient worsens to the point where she is consistently requiring air Vo will consult ID for baricitinib -Family did request Plaquenil and ivermectin be given we did discuss that these are not treatment options that have been accepted under emergent use for Covid and have no documented benefit and I did discuss with her that ivermectin article that was published was recently retracted--> daughter did voiced disappointment with this but did not argue further -Continue IV Lasix -Check sputum culture -CTA done on admission that was more consistent with heart failure then Covid and did not show any pulmonary embolus -Continue supplemental oxygen to keep oxygen saturations greater than 90% and wean as able -Continue incentive spirometry as well as Pep therapy -Blood cultures are pending Acute decompensated systolic heart failure -Heart failure is a new diagnosis for her -Echo done today shows an EF of 35% with moderate global hypokinesis of the LV pulmonary artery systolic pressures of 34 mmHg -It is unclear if this is exacerbated or could be a myocarditis from Covid versus ischemic -Patient does have history of bilateral carotid artery stenosis and has had a carotid endarterectomy -Check lipids -Check hemoglobin A1c -Card consult is pending -BNP was markedly elevated at 488.1 on admission--> will repeat in the morning considering there is it is uncertain whether this is continued decompensated heart failure versus worsening Covid -Would recommend discontinuing of Actos upon discharge as this can cause fluid retention and exacerbation of heart failure -Goal-directed therapy initiated with beta-phil and patient is already on lisinopril--> consider initiation of Aldactone if blood pressure would tolerate -Checking lipids and will initiate Lipitor if elevated and okay with patient Mild troponin elevation -Suspect related to hypoxia and acute decompensated heart failure -Without documented coronary disease -Echocardiogram with global wall motion normality -Cardiology consult is pending -Continue home aspirin Mild thrombocytopenia -Suspect related to acute Covid infection -Monitor DM-2 -Check hemoglobin A1c -Patient is resistant to utilization of insulin -A.m. blood sugar was 84 and patient is on glyburide at baseline -Will reduce dose of glyburide from 10 mg to 5 mg with mild MITZI -I did discuss my preference for her safety and consistency to utilization of insulin during her hospitalization but patient is resistant to this and would prefer we continue oral agents as ordered -Would recommend discontinuation of Actos upon discharge as this can cause fluid retention and exacerbation of heart failure -We are currently holding this medication Hypertension -Continue home lisinopril -Blood pressures are elevated and with depressed EF Coreg 6.25 mg was started -Pressures are over all better with this CKD stage II -Appears baseline serum creatinine is 1.1-1.2 -Current serum creatinine is 1.3--> will continue to monitor closely given continued diuresis DVT prophylaxis Continue Lovenox 30 mg twice daily CODE STATUS -DNR CCA no intubation as per discussion with the patient this morning--> I did confirm this with her daughter and she states that these are her mother's wishes although she disagrees with some she is accepting of this and honors her wishes Charges/Coding Visit Charges Inpatient E&M: 10316 Subs Hosp L3
[2021-09-25] MEDS: Polyethylene Glycol 3350 17 GM PACKET PO (17:25)
[2021-09-25] MEDS: 0.9% Saline Lock 10 ML Syringe IV (17:28)
[2021-09-25] MEDS: Insulin Lispro 100 UNIT/ML INSULN.PEN SC ×2 (17:33→21:47)
[2021-09-25 18:26] LABS: Bedside Glucose 282 mg/dL (70-110)
[2021-09-25 18:40] LABS: Hemoglobin A1c 7.5 % (3.8-5.6)
--- NOTE | 2021-09-25 20:19 | CPS ---
pt refusing bipap this evening
[2021-09-25 21:30] LABS: Bedside Glucose 231 mg/dL (70-110)
[2021-09-26] VITALS (18 sets, daily range): BP systolic 105–140; BP diastolic 60–89; PULSE 87–104; RESP 16–20; TEMP 37.2–38.1; O2SAT 94–96
--- NOTE | 2021-09-26 05:30 | NURSING ---
PT CALLS OUT FEELING SOB. ON ASSESSMENT PT APPEARS GROGGY AND SHAKY. BGT TAKEN SHOWS GLUCOSE AT 26. ORANGE JUICE GIVEN AND PT'S BGT IMPROVED TO 183 ON RECHECK. CRACKERS AND PEANUT BUTTER PROVIDED TO PT.
[2021-09-26 05:31] LABS: Bedside Glucose 26 mg/dL (70-110)
[2021-09-26 05:31] LABS: Bedside Glucose 183 mg/dL (70-110)
[2021-09-26 05:48] LABS: Hematocrit 40.1 % (37-47); Mean Corp Hgb Conc 32.4 g/dL (32-36); Mean Corpuscular Hgb 28.2 pg (27.0-32.0); Mean Platelet Vol. 10.8 fl (6.2-12.0); POSITIVE COUNT YES; Platelet Count 90 K/mm3 (150-450); RBC Distribution Width CV 13.6 % (11.6-14.6); RBC Distribution Width SD 43.1 fl (35.1-43.9); Red Blood Count 4.61 M/mm3 (4.2-5.4); White Blood Count 3.6 K/mm3 (4.4-11.0)
[2021-09-26 05:53] LABS: Scan Indicated on CBC? Y/N YES- FLAGS NOTED
[2021-09-26 05:57] LABS: Glucose 192 mg/dL (74-106)
[2021-09-26 06:01] LABS: ALB/GLOB Ratio 0.7 RATIO (0.9-2.4); AST(SGOT) 37 U/L (15-37); Alanine Aminotransfer ALT/SGPT 41 U/L (13-56); Albumin, Serum 2.5 g/dL (3.2-5.0); Alkaline Phosphatase 74 U/L (45-117); Anion Gap 9 (5-15); BUN 33 mg/dL (7-18); BUN/Creat Ratio 23.1 RATIO (10-20); Chloride 101 mmol/L (98-107); Cholesterol 119 mg/dL (200); Creatinine, Serum 1.43 mg/dL (0.55-1.02); EST Glomerular Filtration Rate 38 mL/min (>60); Est Glom Filt Rate - Afr Amer 46 mL/min (>60); Estimated Creatinine Clearance 28.55 ml/min; Globulin 3.7 g/dL (2.2-4.2); High Density Lipoprotein 42 mg/dL; Potassium 3.6 mmol/L (3.5-5.1); Protein, Total 6.2 g/dL (6.4-8.2); Sodium Level 138 mmol/L (136-145); Triglycerides 97 mg/dL; Very Low Density Lipoprotein 19 mg/dL (5-40)
[2021-09-26 06:02] LABS: BNP,B-Type NATRIURETIC PEPTIDE 351.3 pg/mL (0-100)
[2021-09-26 06:29] LABS: Differential Comment SCANNED
[2021-09-26] MEDS: Ipratropium/Albuterol Sulfate 3 ML AMPUL.NEB INHALATION ×4 (07:40→20:33)
[2021-09-26] MEDS: Nystatin Powder 15gm Bottle 1 APPLIC TOPICAL ×2 (09:37→22:12)
[2021-09-26] MEDS: Potassium Chloride Oral Tablet 20 MEQ PO (09:38)
[2021-09-26] MEDS: Pantoprazole Sodium 40 MG Tablet PO (09:38)
[2021-09-26] MEDS: Carvedilol 6.25 MG Tablet PO ×2 (09:38→22:13)
[2021-09-26] MEDS: Aspirin 81 MG TAB.CHEW PO (09:38)
[2021-09-26] MEDS: Lisinopril 20 MG Tablet PO (09:39)
[2021-09-26] MEDS: hydrALAZINE 10 MG Tablet PO ×3 (09:39→22:13)
[2021-09-26] MEDS: dexAMETHasone 2 MG TABLET 6 MG PO (09:39)
[2021-09-26] MEDS: Enoxaparin 30 MG/0.3 ML Syringe SC ×2 (09:39→22:12)
[2021-09-26] MEDS: guaiFENesin 600 MG Tablet PO ×2 (09:39→22:16)
[2021-09-26] MEDS: 0.9% Saline Lock 10 ML Syringe IV ×2 (09:41→18:19)
[2021-09-26] MEDS: Furosemide 40 MG/4 ML Vial IV ×2 (09:41→17:17)
[2021-09-26] MEDS: Insulin Lispro 100 UNIT/ML INSULN.PEN SC ×2 (11:52→22:16)
[2021-09-26 12:11] LABS: Bedside Glucose 246 mg/dL (70-110)
--- NOTE | 2021-09-26 15:04 | PN.HOSP_ITS ---
Subjective Subjective Patient states feeling much better today. She has been able to be weaned to room air is at 94%. I discussed with her the findings of her echocardiogram and the medical treatment that is in progress and she is comfortable with the current management. We also discussed her treatment for Covid which has included Decadron. I did discuss with her remdesivir as her daughter was not wanting to have this but she states she wants to have remdesivir at this time therefore we will order this for her. Objective Data Objective Data Vital Signs: Vital Signs Temp Pulse Resp BP Pulse Ox 98.9 F 87 18 105/60 94 09/26/21 11:45 09/26/21 11:53 09/26/21 11:45 09/26/21 11:53 09/26/21 11:45 Oxygen Flow Rate (L/min) 2 Oxygen Delivery Method Room Air Weight: 91.58 kg Body Mass Index (BMI) 37.1 Intake & Output: Intake and Output for Last 24 Hours 09/24/21 09/25/21 09/26/21 23:59 23:59 23:59 Intake Total 680 / 800 360 / 360 720 / 720 Output Total 1575 / 1575 1275 / 1275 250 / 250 Balance -895 / -775 -915 / -915 470 / 470 Lab / Micro Data Result Diagrams: 09/26/21 05:38 09/26/21 05:38 Labs: Laboratory Results - last 24 hr 09/24/21 05:58: Diff Path Review Reviewed 09/25/21 06:28: Hemoglobin A1c 7.5 H 09/25/21 17:21: POC Glucose 282 H 09/25/21 21:24: POC Glucose 231 H 09/26/21 04:56: POC Glucose 26 L* 09/26/21 05:20: POC Glucose 183 H 09/26/21 05:38: WBC 3.6 L, RBC 4.61, Hgb 13.0, Hct 40.1, MCV 87.0, MCH 28.2, MCH C 32.4, RDW Std Deviation 43.1, RDW Coeff of Gerard 13.6, Plt Count 90 L, MPV 10.8, Differential Comment SCANNED 09/26/21 05:38: Sodium 138, Potassium 3.6, Chloride 101, Carbon Dioxide 28.0, Anion Gap 9, BUN 33 H, Creatinine 1.43 H, Estim Creat Clear Calc 28.55, Est GFR (MDRD) Af Amer 46 L, Est GFR (MDRD) Non-Af 38 L, BUN/Creatinine Ratio 23.1 H, Glucose 192 H, Calcium 8.0 L, Total Bilirubin 0.70, AST 37, ALT 41, Alkaline Phosphatase 74, Total Protein 6.2 L, Albumin 2.5 L, Globulin 3.7, Albumin/Globulin Ratio 0.7 L, Triglycerides 97, Cholesterol 119, LDL Cholesterol 58, VLDL Cholesterol 19, HDL Cholesterol 42 09/26/21 05:38: B-Natriuretic Peptide 351.3 H 09/26/21 05:38: Glucose Cancelled 09/26/21 11:44: POC Glucose 246 H Micro: Microbiology 09/23/21 23:05 Blood Culture (Wb) #2 - Anticubital Right Blood Culture - Preliminary No growth in 48 hours. 09/23/21 23:40 Blood Culture (Wb) - Anticubital Right Blood Culture - Preliminary No growth in 48 hours. 09/23/21 23:51 Nasal Secretion SARS-CoV-2 Antigen (Rapid) - Final SARS-CoV-2 (COVID 19) Physical Exam Const alert and oriented x3 Constitutional Narrative: Older white female sitting up in a chair at the bedside, on 2 L nasal cannula, appears comfortable, nontoxic, no conversational dyspnea and very interactive and able to participate in conversation without any difficulty Exam Limitations: no limitations Nutritional Appearance: overweight HEENT head/scalp atraumatic and moist oral mucous membranes HEENT Narrative: Mallampati 3, edentulous without dentures in place at this time, no thrush Head and Scalp: normocephalic Resp normal respiratory effort, no retractions, no use of accessory muscles and clear to auscultation bilaterally Resp Narrative: Normal comfortable breathing today without any signs of distress Auscultation: crackles Cardio regular rate, regular rhythm, S1 normal heart sound, S2 normal heart sound, no murmurs, no rub, no gallops, no clicks and no JVD GI normal to inspection, nondistended, normoactive bowel sounds, soft to palpation, non-tender and non-distended Extremity no clubbing, cyanosis or edema Extremity Narrative: Lower extremity edema has resolved Peripheral Pulses: Yes pulses 2+ throughout Neuro oriented x3, moves all extremities and no focal motor deficits Sensorium / Orientation: awake and alert Speech: speech normal Psych affect normal Assessment & Plan Assessment/Plan (1) Acute hypoxemic respiratory failure: (2) CHF (congestive heart failure): QUALIFIERS: Heart failure type: unspecified Heart failure chronicity: acute Qualified Code(s): I50.9 - Heart failure, unspecified (3) SARS-CoV-2 positive: (4) Thrombocytopenia: (5) Elevated troponin I level: PLAN: Acute hypoxic respiratory failure secondary to COVID-19 infection/acute decompensated systolic heart failure -Symptoms started on 09/22/2021 and given this patient will need isolation until 10/12/2021 -Respiratory distress from the last 24 hours is significantly improved and patient has been able to be weaned to 2 L and then to room air with oxygen saturations at 94% at rest -Patient is nonvaccinated -Continue Decadron day 3 -Plan further discussion today since the patient is more able to have conversation she would like remdesivir and this was initiated -Remdesivir day -Will monitor liver and kidney functions daily -Continue IV Lasix -Patient has been unable to produce a sputum culture -Blood cultures are negative at 48 hours -CTA done on admission that was more consistent with heart failure then Covid and did not show any pulmonary embolus -Continue supplemental oxygen to keep oxygen saturations greater than 90% and wean as able -Continue incentive spirometry as well as Pep therapy Acute decompensated systolic heart failure -Heart failure is a new diagnosis for her -Echo done 09/25/2021 shows an EF of 35% with moderate global hypokinesis of the LV pulmonary artery systolic pressures of 34 mmHg -It is unclear if this is exacerbated or could be a myocarditis from Covid versus ischemic -Patient does have history of bilateral carotid artery stenosis and has had a carotid endarterectomy -Lipids well controlled -Hemoglobin A1c is 7.5 -Cardiology has Been consulted but not yet seen the patient -BNP was markedly elevated at 488.1 on admission--> BNP is trending down -Continue IV Lasix 40 mg twice daily -Would recommend discontinuing of Actos upon discharge as this can cause fluid retention and exacerbation of heart failure -Goal-directed therapy initiated with beta-phil and patient is already on lisinopril--> consider initiation of Aldactone if blood pressure would tolerate Mild troponin elevation -Suspect related to hypoxia and acute decompensated heart failure -Without documented coronary disease -Echocardiogram with global wall motion normality -Cardiology consult is pending -Continue home aspirin -Cholesterol is well controlled without any statin Mild thrombocytopenia -Suspect related to acute Covid infection -Monitor DM-2 -JANIA globin A1c is 7.5 -Patient is resistant to utilization of insulin -A.m. blood sugar was 84 and patient is on glyburide at baseline -Discontinue glyburide at this time -Patient is willing to utilize sliding scale insulin and holding oral agents -Would recommend discontinuation of Actos upon discharge as this can cause fluid retention and exacerbation of heart failure -We are currently holding this medication Hypertension -Continue home lisinopril -Continue Coreg 6.25 twice daily -Blood pressure control is much better Thrombocytopenia -Suspect related to acute Covid infection -Currently at 90,000 -Continue to monitor CKD stage II -Appears baseline serum creatinine is 1.1-1.2 -Current serum creatinine is 1.43--> will continue to monitor closely given continued diuresis DVT prophylaxis Continue Lovenox 30 mg twice daily CODE STATUS -DNR CCA no intubation per patient's wishes--> I did confirm this with her daughter and she states that these are her mother's wishes although she disagrees with some she is accepting of this and honors her wishes Charges/Coding Visit Charges Inpatient E&M: 93091 Subs Hosp L2
[2021-09-26 16:36] LABS: Bedside Glucose 453 mg/dL (70-110)
[2021-09-26] MEDS: Insulin Lispro 100 UNIT/ML INSULN.PEN 20 UNIT SC (17:18)
[2021-09-26] MEDS: Acetaminophen 325 MG Tablet 650 MG PO (22:23)
[2021-09-26 23:06] LABS: Bedside Glucose 326 mg/dL (70-110)
[2021-09-27] VITALS (26 sets, daily range): BP systolic 90–131; BP diastolic 44–105; PULSE 73–92; RESP 16–22; TEMP 37–37.8; O2SAT 82–100
[2021-09-27 00:30] LABS: Bedside Glucose 245 mg/dL (70-110)
[2021-09-27] MEDS: Ipratropium/Albuterol Sulfate 3 ML AMPUL.NEB INHALATION ×8 (00:48→23:53)
[2021-09-27 04:53] LABS: Hematocrit 40.8 % (37-47); Hemoglobin 13.1 g/dL (12.0-15.0); Mean Corp Hgb Conc 32.1 g/dL (32-36); Mean Corpuscular Hgb 28.1 pg (27.0-32.0); Mean Corpuscular Volume 87.6 fL (81-99); Mean Platelet Vol. 10.7 fl (6.2-12.0); POSITIVE COUNT YES; Platelet Count 80 K/mm3 (150-450); RBC Distribution Width CV 13.8 % (11.6-14.6); RBC Distribution Width SD 44.5 fl (35.1-43.9); Red Blood Count 4.66 M/mm3 (4.2-5.4); White Blood Count 3.4 K/mm3 (4.4-11.0)
[2021-09-27 05:11] LABS: Glucose 201 mg/dL (74-106)
[2021-09-27 05:20] LABS: ALB/GLOB Ratio 0.6 RATIO (0.9-2.4); AST(SGOT) 34 U/L (15-37); Alanine Aminotransfer ALT/SGPT 36 U/L (13-56); Albumin, Serum 2.4 g/dL (3.2-5.0); Alkaline Phosphatase 67 U/L (45-117); Anion Gap 6 (5-15); BUN 39 mg/dL (7-18); BUN/Creat Ratio 26.5 RATIO (10-20); Chloride 97 mmol/L (98-107); Creatinine, Serum 1.47 mg/dL (0.55-1.02); EST Glomerular Filtration Rate 37 mL/min (>60); Est Glom Filt Rate - Afr Amer 45 mL/min (>60); Estimated Creatinine Clearance 27.77 ml/min; Globulin 3.8 g/dL (2.2-4.2); Glucose 207 mg/dL (74-106); Protein, Total 6.2 g/dL (6.4-8.2); Sodium Level 137 mmol/L (136-145)
--- NOTE | 2021-09-27 07:09 | PCS.PANDOC ---
PANDEMIC DOCUMENTATION INITIATED: Date: 06/15/2021 Time: 190
[2021-09-27 07:10] LABS: Bedside Glucose 184 mg/dL (70-110)
[2021-09-27] MEDS: Aspirin 81 MG TAB.CHEW PO (08:36)
[2021-09-27] MEDS: Potassium Chloride Oral Tablet 20 MEQ PO (08:36)
[2021-09-27] MEDS: hydrALAZINE 10 MG Tablet PO ×4 (08:42→21:12)
--- NOTE | 2021-09-27 08:52 | NURSING ---
Pt stated to this nurse that she doesn't want the remdesivir, I gave my daughter permission to make decisions for me and she told them not to give me that. They talked me into it yesterday when I was out of it and I do not want it. My daughter called and yelled at me for getting it. This RN asked pt why she and her daughter do not want her to get remdesivir, pt stated I don't know. Education provided to pt on her right to make her own decisions regarding her treatment plan and how healthcare POA works. Pt receptive to information and thanked this RN. Advised pt that Dr Patel would be notified of pt's request not to get remdesivir.
[2021-09-27 08:55] LABS: Bedside Glucose 89 mg/dL (70-110)
[2021-09-27] MEDS: Furosemide 40 MG Tablet PO ×2 (10:13→16:29)
[2021-09-27] MEDS: guaiFENesin 600 MG Tablet PO ×2 (10:13→21:12)
[2021-09-27] MEDS: Pantoprazole Sodium 40 MG Tablet PO (10:17)
[2021-09-27] MEDS: Nystatin Powder 15gm Bottle 1 APPLIC TOPICAL ×2 (10:19→21:13)
[2021-09-27] MEDS: dexAMETHasone 2 MG TABLET 6 MG PO (10:19)
[2021-09-27] MEDS: Enoxaparin 30 MG/0.3 ML Syringe SC ×2 (10:19→21:12)
[2021-09-27] MEDS: Carvedilol 6.25 MG Tablet PO ×2 (10:21→21:12)
[2021-09-27] MEDS: Lisinopril 20 MG Tablet PO (10:21)
[2021-09-27] MEDS: Acetaminophen 325 MG Tablet 650 MG PO (10:28)
--- NOTE | 2021-09-27 11:04 | CON.PCM.CA_ITS ---
Assessment & Plan Assessment/Plan (1) Bronchitis due to COVID-19 virus: (2) Acute hypoxemic respiratory failure: (3) CHF (congestive heart failure): QUALIFIERS: Heart failure chronicity: acute Heart failure type: unspecified Qualified Code(s): I50.9 - Heart failure, unspecified (4) SARS-CoV-2 positive: (5) Elevated troponin I level: PLAN: 76-year-old patient with COVID-19 from review of record she is feeling better with improvement in her oxygen saturation today 94 She has mild elevation of cardiac biomarkers troponin and significantly abnormal echocardiogram with EF around 35% There is no documented prior cardiac history Cardiac recommendation and plan; 1. Cardiac telemetry revealed normal sinus rhythm 2. Patient currently on MARILYN inhibitor and beta-phil, low-dose aspirin as tolerated 3. Patient to follow-up with [facility] cardiology team/Dr. Padgett HPI Consult Data Date of Consult: 09/27/21 HPI Narrative Reason for Consultation: Patient with Covid 19 abnormal echocardiogram with EF 35% HPI Narrative: PITER ZUÑIGA, is a 76 F who presents [facility] Medical History (Updated 09/25/21 @ 17:[address] Annabelle Patel, DO) Diabetes mellitus, type 2 HTN (hypertension) Stage 3a chronic kidney disease Home Medications aspirin 81 mg PO DAILY 09/24/21 [History Last Taken Unknown] glyburide 10 mg DAILY 09/24/21 [History Last Taken Unknown] hydralazine 10 mg PO 4X/DAY 09/24/21 [History Last Taken Unknown] lisinopril 20 mg DAILY 09/24/21 [History Last Taken Unknown] pioglitazone [Actos] 30 mg DAILY 09/24/21 [History Last Taken Unknown] Allergy/AdvReac Type Severity Reaction Status Date / Time No Known Allergies Allergy Verified 09/23/21 22:39 Family History Other Diabetes Heart disease Surgical History H/O carotid endarterectomy Social History Smoking Status: Former smoker Physical Exam Narrative Physical exam is not performed in this case to minimize risk of spread of COVID- 19 Cardiac consultation is based on the data discussed with the medical team and the nursing staff and review of the echocardiogram and the current lab evaluation. Risk Stratification Risk Stratification Applicable: No Objective Data Vital Signs: Vital Signs Temp Pulse Resp BP Pulse Ox 100.0 F H 91 20 H 131/105 H 95 09/27/21 08:20 09/27/21 10:20 09/27/21 08:20 09/27/21 10:20 09/27/21 08:22 Oxygen Flow Rate (L/min) [ 4 AMBULATING with Oxygen #2] Oxygen Flow Rate (L/min) [ 2 AMBULATING with Oxygen #1] Oxygen Flow Rate (L/min) [At 2 REST with Oxygen] Oxygen Flow Rate (L/min) 2 Oxygen Delivery Method Nasal Cannula Weight: 201 lb 0.985 oz Body Mass Index (BMI) 37.1 Intake & Output: Intake and Output for Last 24 Hours 09/25/21 09/26/21 09/27/21 23:59 23:59 23:59 Intake Total 360 / 360 1390 / 1390 400 / 400 Output Total 1275 / 1275 1150 / 1150 300 / 300 Balance -915 / -915 240 / 240 100 / 100 Lab / Micro Data Result Diagrams: 09/27/21 04:35 09/27/21 04:45 Labs: Laboratory Results - last 24 hr 09/26/21 11:44: POC Glucose 246 H 09/26/21 16:09: POC Glucose 453 H* 09/26/21 22:11: POC Glucose 326 H 09/27/21 00:17: POC Glucose 245 H 09/27/21 03:37: POC Glucose 184 H 09/27/21 04:35: WBC 3.4 L, RBC 4.66, Hgb 13.1, Hct 40.8, MCV 87.6, MCH 28.1, MCHC 32.1, RDW Std Deviation 44.5 H, RDW Coeff of Gerard 13.8, Plt Count 80 L, MPV 10.7 09/27/21 04:35: Glucose 201 H 09/27/21 04:45: Sodium 137, Potassium 4.0, Chloride 97 L, Carbon Dioxide 34.0 H, Anion Gap 6, BUN 39 H, Creatinine 1.47 H, Estim Creat Clear Calc 27.77, Est GFR (MDRD) Af Amer 45 L, Est GFR (MDRD) Non-Af 37 L, BUN/Creatinine Ratio 26.5 H, Glucose 207 H, Calcium 8.0 L, Total Bilirubin 0.50, AST 34, ALT 36, Alkaline Phosphatase 67, Total Protein 6.2 L, Albumin 2.4 L, Globulin 3.8, Al bumin/Globulin Ratio 0.6 L 09/27/21 08:17: POC Glucose 89 Micro: Microbiology 09/23/21 23:05 Blood Culture (Wb) #2 - Anticubital Right Blood Culture - Preliminary No growth in 48 hours. 09/23/21 23:40 Blood Culture (Wb) - Anticubital Right Blood Culture - Preliminary No growth in 48 hours. Cardiology Labs/Tests 09/27/21 04:35: WBC 3.4 L, RBC 4.66, Hgb 13.1, Hct 40.8, MCV 87.6, MCH 28.1, MCHC 32.1, Plt Count 80 L, MPV 10.7 09/27/21 04:35: Glucose 201 H 09/27/21 04:45: Sodium 137, Potassium 4.0, Chloride 97 L, Carbon Dioxide 34.0 H, Anion Gap 6, BUN 39 H, Creatinine 1.47 H, Est GFR (MDRD) Af Amer 45 L, Est GFR (MDRD) Non-Af 37 L, BUN/Creatinine Ratio 26.5 H, Glucose 207 H, Calcium 8.0 L, T otal Bilirubin 0.50 Rhythm: Normal sinus rhythm EKG: Normal sinus rhythm, no significant ST?the abnormalities noted
[2021-09-27] MEDS: Insulin Lispro 100 UNIT/ML INSULN.PEN SC ×3 (11:45→21:12)
[2021-09-27 12:00] LABS: Bedside Glucose 289 mg/dL (70-110)
--- NOTE | 2021-09-27 15:08 | PN.HOSP_ITS ---
Subjective Subjective Patient states today that she does not remember any conversations we had yesterday although she was alert and oriented x3 at the time. I rediscussed the findings of her echocardiogram and she stated that she vaguely remembered that discussion. She does say that she does no longer want remdesivir and I told her that we had already discontinued this order as I had a discussion with her daughter that morning. We further discussed her medications that had been to started with regards to her new findings of heart failure and the need for probably discontinue her Actos at discharge and she voiced understanding. I also had this conversation with her daughter so she would be aware with the potential plan to discharge. Patient voices no complaints at this time however she states she is tired. Objective Data Objective Data Vital Signs: Vital Signs Temp Pulse Resp BP Pulse Ox 98.6 F 79 20 H 116/64 96 09/27/21 14:34 09/27/21 14:53 09/27/21 14:34 09/27/21 14:34 09/27/21 14:34 Oxygen Flow Rate (L/min) [ 4 AMBULATING with Oxygen #2] Oxygen Flow Rate (L/min) [ 2 AMBULATING with Oxygen #1] Oxygen Flow Rate (L/min) [At 2 REST with Oxygen] Oxygen Flow Rate (L/min) 3 Oxygen Delivery Method Nasal Cannula Weight: 91.2 kg Body Mass Index (BMI) 37.1 Intake & Output: Intake and Output for Last 24 Hours 09/25/21 09/26/21 09/27/21 23:59 23:59 23:59 Intake Total 360 / 360 1390 / 1390 780 / 780 Output Total 1275 / 1275 1150 / 1150 525 / 525 Balance -915 / -915 240 / 240 255 / 255 Lab / Micro Data Result Diagrams: 09/27/21 04:35 09/27/21 04:45 Labs: Laboratory Results - last 24 hr 09/26/21 16:09: POC Glucose 453 H* 09/26/21 22:11: POC Glucose 326 H 09/27/21 00:17: POC Glucose 245 H 09/27/21 03:37: POC Glucose 184 H 09/27/21 04:35: WBC 3.4 L, RBC 4.66, Hgb 13.1, Hct 40.8, MCV 87.6, MCH 28.1, MCHC 32.1, RDW Std Deviation 44.5 H, RDW Coeff of Gerard 13.8, Plt Count 80 L, MPV 10.7 09/27/21 04:35: Glucose 201 H 09/27/21 04:45: Sodium 137, Potassium 4.0, Chloride 97 L, Carbon Dioxide 34.0 H, Anion Gap 6, BUN 39 H, Creatinine 1.47 H, Estim Creat Clear Calc 27.77, Est GFR (MDRD) Af Amer 45 L, Est GFR (MDRD) Non-Af 37 L, BUN/Creatinine Ratio 26.5 H, G lucose 207 H, Calcium 8.0 L, Total Bilirubin 0.50, AST 34, ALT 36, Alkaline Phosphatase 67, Total Protein 6.2 L, Albumin 2.4 L, Globulin 3.8, Albumin/Globulin Ratio 0.6 L 09/27/21 08:17: POC Glucose 89 09/27/21 11:42: POC Glucose 289 H Micro: Microbiology 09/23/21 23:05 Blood Culture (Wb) #2 - Anticubital Right Blood Culture - Preliminary No growth in 48 hours. 09/23/21 23:40 Blood Culture (Wb) - Anticubital Right Blood Culture - Preliminary No growth in 48 hours. 09/23/21 23:51 Nasal Secretion SARS-CoV-2 Antigen (Rapid) - Final SARS-CoV-2 (COVID 19) Physical Exam Const alert and oriented x3 Constitutional Narrative: Older white female sitting up in a chair at the bedside, on 2 L nasal cannula, appears comfortable, nontoxic, no conversational dyspnea and very interactive and able to participate in conversation without any difficulty Exam Limitations: no limitations Nutritional Appearance: overweight HEENT head/scalp atraumatic and moist oral mucous membranes Eyes PERRL, EOMs intact bilaterally and conjunctivae normal Eyes Narrative: No scleral icterus Neck no lymphadenopathy and supple Neck Narrative: Trachea midline, short thick neck, no thyroid enlargement noted Resp normal respiratory effort, no retractions, no use of accessory muscles and clear to auscultation bilaterally Resp Narrative: Normal comfortable breathing today without any signs of distress Auscultation: crackles Cardio regular rate, regular rhythm, S1 normal heart sound, S2 normal heart sound, no murmurs, no rub, no gallops, no clicks and no JVD Cardio Narrative: Mild tachycardia GI normal to inspection, nondistended, normoactive bowel sounds, soft to palpation, non-tender and non-distended Extremity no clubbing, cyanosis or edema Extremity Narrative: Lower extremity edema has resolved Skin no rashes or lesions noted, no wounds, skin turgor normal, no jaundice, no petechiae and no mottling Neuro oriented x3, moves all extremities and no focal motor deficits Sensorium / Orientation: awake and alert Speech: speech normal Psych affect normal Mood & Affect: anxious Assessment & Plan Assessment/Plan (1) Acute hypoxemic respiratory failure: (2) CHF (congestive heart failure): QUALIFIERS: Heart failure type: unspecified Heart failure chronicity: acute Qualified Code(s): I50.9 - Heart failure, unspecified (3) SARS-CoV-2 positive: (4) Thrombocytopenia: (5) Elevated troponin I level: PLAN: Acute hypoxic respiratory failure secondary to COVID-19 infection/acute decompensated systolic heart failure -Symptoms started on 09/22/2021 and given this patient will need isolation until 10/12/2021 -Patient remains stable on 2 L of oxygen at rest -88% on room air and she desatted to 82% with ambulation on 2 L -Patient is nonvaccinated -Continue Decadron day 4 of 10 -Patient states today that she no longer would like remdesivir and reports that her daughter called in and yelled at her with regards to her giving the okay to have this medication -Did call the daughter and explained the conversation I had with her mother yesterday and she voiced understanding and I did let her know that we had di scontinued the medication after only 1 dose. -Discontinue IV Lasix today and start oral Lasix 40 mg p.o. twice daily -Patient has been unable to produce a sputum culture -Blood cultures are negative -CTA done on admission that was more consistent with heart failure then Covid and did not show any pulmonary embolus -Continue supplemental oxygen to keep oxygen saturations greater than 90% and wean as able -Continue incentive spirometry as well as Pep therapy Acute decompensated systolic heart failure -Heart failure is a new diagnosis for her -Echo done 09/25/2021 shows an EF of 35% with moderate global hypokinesis of the LV pulmonary artery systolic pressures of 34 mmHg -It is unclear if this is exacerbated or could be a myocarditis from Covid versus ischemic -Patient does have history of bilateral carotid artery stenosis and has had a carotid endarterectomy -Lipids well controlled -Hemoglobin A1c is 7.5 -BNP was markedly elevated at 488.1 on admission -IV Lasix converted to p.o. on 09/27/2021 -Would recommend discontinuing of Actos upon discharge as this can cause fluid retention and exacerbation of heart failure -Goal-directed therapy initiated with beta-phil and patient is already on lisinopril--> consider initiation of Aldactone if blood pressure would tolerate -Discussed the plan of care both with the patient and the daughter and they voiced understanding with medication changes and additions. -Recommend outpatient follow-up with cardiology after discharge Mild troponin elevation -Suspect related to hypoxia and acute decompensated heart failure -Without documented coronary disease -Echocardiogram with global wall motion normality -Continue home aspirin -Cholesterol is well controlled without any statin -Cardiology is following Mild thrombocytopenia -Suspect related to acute Covid infection -Slight drop in platelets--> now 80,000 from 90,000 and last 24 hours -Repeat CBC in a.m. -Consider discontinuation of prophylactic Lovenox if continues to drop -Monitor DM-2 -JANIA globin A1c is 7.5 -Patient was initially resistant to utilization of insulin and wanted oral agents but had hypoglycemic episodes -Oral agents on hold -Lantus 15 units at at bedtime -Continue sliding scale -Would recommend discontinuation of Actos upon discharge as this can cause fluid retention and exacerbation of heart failure -We are currently holding this medication Hypertension -Continue home lisinopril -Continue Coreg 6.25 twice daily -Blood pressure control is much better Thrombocytopenia -Suspect related to acute Covid infection -Currently at 90,000 -Continue to monitor CKD stage II -Appears baseline serum creatinine is 1.1-1.2 -Current serum creatinine is 1.43--> will continue to monitor closely given continued diuresis DVT prophylaxis Continue Lovenox 30 mg twice daily CODE STATUS -DNR CCA no intubation per patient's wishes--> I did confirm this with her daughter and she states that these are her mother's wishes although she disagree s with some she is accepting of this and honors her wishes There evidently was some miscommunication with regards to the initiation of remdesivir. As noted previously I did discussed extensively the initiation of remdesivir with the patient yesterday after she asked if there was any other medical treatment we could pursue with regards to her Covid. At that time she noted that she wanted to start remdesivir and therefore I ordered it as she was alert and oriented x3 at the time of our conversation. I did discuss with her that she may want to discuss this with her daughter as previously noted her daughter was against utilization of remdesivir but the patient stated at that time that since she was mentally capable of making her decisions it was her decision to make and she wanted to take the medication. Today the daughter had voiced concerns to nursing staff that her mother no longer wanted this medication and she was frustrated that was initiated to begin with. I had an extensive discussion with the daughter and explained the occurrences of yesterday and she voiced understanding. I did tell her that we had discontinued the medication at this time and that upon discussion with her mother her mother agreed with the discontinuation of remdesivir. We also discussed the echo fin dings and the plan of care with regards to her heart failure. I discussed with her that the etiology is unknown at this time and she would need follow-up with cardiology as an outpatient. I discussed with her the initiation of the Coreg and continued lisinopril and that the patient was undergoing ongoing diuresis with improved respiratory status at this time. I did tell her that I feel that her respiratory status is tenuous and likely a combination of acute heart failure and COVID-19 infection. I indicated we will continue to monitor her for oxygen needs and progress. She think me for my communication and was very pleasant throughout the conversation. Charges/Coding Visit Charges Inpatient E&M: 20893 Subs Hosp L2
[2021-09-27 17:06] LABS: Bedside Glucose 378 mg/dL (70-110)
[2021-09-27 21:25] LABS: Bedside Glucose 445 mg/dL (70-110)
[2021-09-27] MEDS: BENZOCAINE/MENTHOL 1 LOZENGE MUCOUS MEM (23:25)
[2021-09-27 23:30] LABS: Bedside Glucose 323 mg/dL (70-110)
[2021-09-28] VITALS (13 sets, daily range): BP systolic 115–149; BP diastolic 67–99; PULSE 70–92; RESP 16–20; TEMP 36.3–36.9; O2SAT 86–97
[2021-09-28 02:46] LABS: Bedside Glucose 204 mg/dL (70-110)
[2021-09-28] MEDS: Ipratropium/Albuterol Sulfate 3 ML AMPUL.NEB INHALATION ×4 (04:26→15:17)
[2021-09-28 06:54] LABS: Hematocrit 40.3 % (37-47); Hemoglobin 13.6 g/dL (12.0-15.0); Mean Corp Hgb Conc 33.7 g/dL (32-36); Mean Corpuscular Hgb 28.8 pg (27.0-32.0); Mean Corpuscular Volume 85.2 fL (81-99); Mean Platelet Vol. 11.3 fl (6.2-12.0); POSITIVE COUNT YES; Platelet Count 80 K/mm3 (150-450); RBC Distribution Width CV 13.5 % (11.6-14.6); RBC Distribution Width SD 42.5 fl (35.1-43.9); Red Blood Count 4.73 M/mm3 (4.2-5.4); White Blood Count 2.9 K/mm3 (4.4-11.0)
[2021-09-28 07:03] LABS: Scan Indicated on CBC? Y/N YES- FLAGS NOTED
[2021-09-28 07:14] LABS: ALB/GLOB Ratio 0.6 RATIO (0.9-2.4); AST(SGOT) 36 U/L (15-37); Alanine Aminotransfer ALT/SGPT 33 U/L (13-56); Albumin, Serum 2.2 g/dL (3.2-5.0); Alkaline Phosphatase 64 U/L (45-117); Anion Gap 8 (5-15); BUN 47 mg/dL (7-18); BUN/Creat Ratio 35.3 RATIO (10-20); Calcium,Total 8.6 mg/dL (8.5-10.1); Chloride 98 mmol/L (98-107); Creatinine, Serum 1.33 mg/dL (0.55-1.02); EST Glomerular Filtration Rate 41 mL/min (>60); Est Glom Filt Rate - Afr Amer 50 mL/min (>60); Globulin 3.9 g/dL (2.2-4.2); Glucose 183 mg/dL (74-106); Potassium 4.2 mmol/L (3.5-5.1); Protein, Total 6.1 g/dL (6.4-8.2); Sodium Level 136 mmol/L (136-145)
[2021-09-28] MEDS: Sodium Chloride 0.65% 1 SPRAY SPRAY.BTL 2 SPRAY NASAL (08:55)
[2021-09-28] MEDS: Aspirin 81 MG TAB.CHEW PO (08:56)
[2021-09-28] MEDS: Insulin Lispro 100 UNIT/ML INSULN.PEN SC ×2 (08:56→11:01)
[2021-09-28] MEDS: hydrALAZINE 10 MG Tablet PO ×2 (08:57→12:57)
[2021-09-28] MEDS: Furosemide 40 MG Tablet PO (08:58)
[2021-09-28] MEDS: Potassium Chloride Oral Tablet 20 MEQ PO (08:58)
[2021-09-28] MEDS: guaiFENesin 600 MG Tablet PO (08:58)
[2021-09-28] MEDS: Pantoprazole Sodium 40 MG Tablet PO (08:58)
[2021-09-28] MEDS: dexAMETHasone 2 MG TABLET 6 MG PO (08:58)
[2021-09-28 09:16] LABS: Bedside Glucose 160 mg/dL (70-110)
[2021-09-28] MEDS: Nystatin Powder 15gm Bottle 1 APPLIC TOPICAL (10:57)
[2021-09-28] MEDS: Carvedilol 6.25 MG Tablet PO (10:58)
[2021-09-28] MEDS: Enoxaparin 30 MG/0.3 ML Syringe SC (10:58)
[2021-09-28] MEDS: Lisinopril 20 MG Tablet PO (10:58)
[2021-09-28 11:09] LABS: Bedside Glucose 274 mg/dL (70-110)
--- NOTE | 2021-09-28 12:30 | CASEMGMT ---
Pt does qualify for 2L at rest and 3L w/ exertion and had previously agreed to [facility] for home oxygen. Pt states she will be going to stay at her house in [place], [place]([facility]) so that she does not infect her daughter/family with COVID. This RN CM offered to set up HHC and pt was agreeable but then stated that she has a neighbor that is a nurse and she will assist in taking care of her. Pt declines [facility] for nursing or therapy at this time. Referral faxed to [facility] for home oxygen and pt is updated that they will bring e-tank to get her home and then they will come set up the oxygen at her home, voices understanding and asks this RN CM to update daughter regarding same. Call to daughter, Fany, and she is updated on all, voices understanding and voices no further questions/concerns/needs. Fany states she will be transporting pt home at discharge and would like pt's RN to call her once pt is ready for discharge. Sakina PINEDA updated, voices understanding. Isabella RN CM
--- NOTE | 2021-09-28 15:22 | PCM.HOSP.N ---
Hospitalist Note Patient's pulse ox was checked at rest on room air-the reading was 86%, her pulse ox was 91% at rest on 2 L via nasal cannula, she required oxygen at 3 L via nasal cannula to maintain a pulse ox of 89% while ambulating. She is expected to wear her oxygen in her home and outside her home for her ADLs.
--- NOTE | 2021-09-28 15:25 | DCINST_ITS ---
Discharge Instructions Diet Discharge Diet: 1800 Calorie Control Diet Activity Discharge Activity: Return to Normal Activity Additional Activity Instructions:: Quarantine for a total of 20 days after your first symptoms of COVID-19 Follow Up Care Test Results: Test results from this visit will be discussed in further detail at your follow-up appointment, if applicable. Discharge Plan Admission Admit Date/Time: 09/24/21 03:02 Primary Reason for Your Visit: covid-19, CHF Attending Provider: Bertin Dean Consulting Providers: Marianna Larsen Instructions Additional Instructions / Restrictions: Quarantine for a total of 20 days after your first symptoms of COVID-19 Wear supplemental oxygen at 2 L/min at rest, wear oxygen at 3 L/min when ambulating Discharge Orders/Prescriptions Prescriptions: New furosemide 40 mg Tablet 40 mg PO BIDLX Qty: 60 RF: 0 carvedilol 6.25 mg Tablet 6.25 mg PO BID Qty: 60 RF: 0 potassium chloride [Klor-Con M20] 20 mEq Tablet,Er Particles/Crystals 20 meq PO DAILYCM Qty: 30 RF: 0 sodium chloride [Deep Sea Nasal] 0.65 % Aerosol,[facility] 2 spray NASAL TID PRN PRN (Reason: NASAL DRYNESS) Qty: 0 RF: 0 glyburide 5 mg tablet 15 mg PO DAILY Qty: 90 RF: 0 dexamethasone 2 mg tablet 6 mg PO DAILY Qty: 15 RF: 0 Continued hydralazine 10 mg Tablet 10 mg PO 4X/DAY RF: 0 lisinopril 5 mg tablet 20 mg DAILY RF: 0 aspirin 81 mg Capsule 81 mg PO DAILY RF: 0 Discontinued pioglitazone [Actos] 15 mg tablet 30 mg DAILY RF: 0 glyburide 5 mg tablet 10 mg DAILY RF: 0 Referrals / Follow Up: LANETTE CRUM [Other] - See Referral Note (in two weeks-make sure it is after your quarantine period is over ) [facility] Doctor,Out of [NON-STAFF] - Disposition Disposition (needs filled in before D/C Order can be placed): Home, Self Care
--- NOTE | 2021-09-28 15:57 | PCM.DC.SUM ---
Providers Date of Admission: 09/24/21 Date of Discharge: 09/28/21 Primary Care Physician: LANETTE CRUM Consultations 09/25/21 13:28 Consult: Cardiology Routine Consulting Provider: Marianna Larsen Reason for Consult: New HFrEF and Trop elevation EMERGENT Consult: No MD Notified: Yes Date Notified: 09/25/21 Time Notified: 13:40 Method of Notification: Text Reason For Visit: ACUTE HYPOXEMIC RESPIRATORY FAILURE Diagnosis Discharge Diagnosis (1) Acute hypoxemic respiratory failure: Status: Acute Code(s): J96.01 - Acute respiratory failure with hypoxia (2) CHF (congestive heart failure): Status: Acute Code(s): I50.9 - Heart failure, unspecified Qualifiers: Heart failure chronicity: acute Heart failure type: unspecified Qualified Code(s): I50.9 - Heart failure, unspecified (3) SARS-CoV-2 positive: Status: Acute Code(s): U07.1 - COVID-19 (4) Thrombocytopenia: Status: Acute Code(s): D69.6 - Thrombocytopenia, unspecified (5) Elevated troponin I level: Status: Acute Code(s): R77.8 - Other specified abnormalities of plasma proteins Plan: 1. COVID-19 pneumonia #2 acute hypoxic respiratory failure secondary to COVID-19 pneumonia #3 acute systolic congestive heart failure #4 type 2 diabetes #5 essential hypertension #6 cardiomyopathy-type unknown Non-STEMI ruled out Medications at Discharge Home Medications aspirin 81 mg PO DAILY 09/24/21 hydralazine 10 mg PO 4X/DAY 09/24/21 lisinopril 20 mg DAILY 09/24/21 carvedilol 6.25 mg PO BID #60 tab 09/28/21 dexamethasone 6 mg PO DAILY #15 tab 09/28/21 furosemide 40 mg PO BIDLX #60 tab 09/28/21 glyburide 15 mg PO DAILY #90 tab 09/28/21 potassium chloride [Klor-Con M20] 20 meq PO DAILYCM #30 tab 09/28/21 sodium chloride [Deep Sea Nasal] 2 spray NASAL TID PRN PRN #0 ml 09/28/21 Hospital Course Operations None Procedures 2-D Echocardiogram Summary of Care Provided Minutes Spent on Discharge: 33 Hospital Course: This 76-year-old white female was seen in the emergency room at [facility] with chief complaint of cough and dyspnea. Work-up included a chest x-ray which showed cardiomegaly with pulmonary edema and probable left pleural effusion, chest CTA was performed which showed evidence indicating congestive heart failure-no pulmonary embolism was noted to be present. Patient's Covid test was positive. Patient required supplemental oxygen to maintain her pulse ox. Patient was admitted to PCU, she was placed on dexamethasone, remdesivir, IV diuretics, and an echocardiogram was obtained. This showed a low ejection fraction at 38%. Patient improved during her hospitalization, on 09/28/2021, patient was seen and examined: On examination she appeared in good health and spirits, she does not appear to be in any distress. Vital signs as documented. Skin warm and dry and without overt rashes. Neck without JVD, thyroid appears normal, trachea is midline, neck is supple. Lungs clear, normal air movement was noted. Heart exam notable for regular rhythm, normal sounds and absence of murmurs, rubs or gallops. Abdomen unremarkable and without evidence of organomegaly, masses, or abdominal aortic enlargement, bowel sounds are present in all 4 quadrants, no abdominal tenderness was noted. Extremities nonedematous, no cyanosis was noted, no clubbing was noted. Neuro: Cranial nerves II through XII are grossly intact, no focal motor deficits were noted, sensation to light touch and pinprick is intact, motor exam 5/5 throughout. Psych: Patient is alert and oriented x3, she does not appear anxious or depressed, she does not appear agitated. Patient required supplemental oxygen on discharge from the hospital, she appears stable for discharge on 09/28/2021. Weight / BMI Weight Weight: 91.5 kg Body Mass Index (BMI) 37.1 ABG / Lab / Microbiology Data Result Diagrams: 09/28/21 06:10 09/28/21 06:10 Laboratory: Laboratory Results - last 24 hr 09/27/21 16:24: POC Glucose 378 H 09/27/21 21:09: POC Glucose 445 H 09/27/21 23:24: POC Glucose 323 H 09/28/21 02:30: POC Glucose 204 H 09/28/21 06:10: WBC 2.9 L, RBC 4.73, Hgb 13.6, Hct 40.3, MCV 85.2, MCH 28.8, MCHC 33.7, RDW Std Deviation 42.5, RDW Coeff of Gerard 13.5, Plt Count 80 L, MPV 11.3 09/28/21 06:10: Sodium 136, Potassium 4.2, Chloride 98, Carbon Dioxide 30.0, Anion Gap 8, BUN 47 H, Creatinine 1.33 H, Estim Creat Clear Calc 30.70, Est GFR (MDRD) Af Amer 50 L, Est GFR (MDRD) Non-Af 41 L, BUN/Creatinine Ratio 35.3 H, Glucose 183 H, Calcium 8.6, Total Bilirubin 0.50, AST 36, ALT 33, Alkaline Phosphatase 64, Total Protein 6.1 L, Albumin 2.2 L, Globulin 3.9, Albumin/Globulin Ratio 0.6 L 09/28/21 08:44: POC Glucose 160 H 09/28/21 10:55: POC Glucose 274 H Microbiology: Microbiology 09/27/21 14:30 Sputum, Expectorated/Coughed Gram Stain - Final 09/27/21 14:30 Sputum, Expectorated/Coughed Respiratory Culture - Preliminary Appears to be normal respiratory tara. Further studies to follow. 09/23/21 23:05 Blood Culture (Wb) #2 - Anticubital Right Blood Culture - Preliminary No growth in 48 hours. 09/23/21 23:40 Blood Culture (Wb) - Anticubital Right Blood Culture - Preliminary No growth in 48 hours. 09/23/21 23:51 Nasal Secretion SARS-CoV-2 Antigen (Rapid) - Final SARS-CoV-2 (COVID 19) D/C Instructions Discharge Diet: 1800 Calorie Control Diet Additional Activity Instructions: Quarantine for a total of 20 days after your first symptoms of COVID-19 Meaningful Use Info Meaningful Use Diagnoses (Choose all that apply): CHF CHF MARILYN/ARB ordered at discharge?: Yes Documented LVEF (%): 35 Discharge Plan Admission Admit Date/Time: 09/24/21 03:02 Primary Reason for Your Visit: covid-19, CHF Attending Provider: Bertin Dean Consulting Providers: Marianna Larsen Instructions Additional Instructions / Restrictions: Quarantine for a total of 20 days after your first symptoms of COVID-19 Wear supplemental oxygen at 2 L/min at rest, wear oxygen at 3 L/min when ambulating Discharge Orders/Prescriptions Prescriptions: New furosemide 40 mg Tablet 40 mg PO BIDLX Qty: 60 RF: 0 carvedilol 6.25 mg Tablet 6.25 mg PO BID Qty: 60 RF: 0 potassium chloride [Klor-Con M20] 20 mEq Tablet,Er Particles/Crystals 20 meq PO DAILYCM Qty: 30 RF: 0 sodium chloride [Deep Sea Nasal] 0.65 % Aerosol,[employer] 2 spray NASAL TID PRN PRN (Reason: NASAL DRYNESS) Qty: 0 RF: 0 glyburide 5 mg tablet 15 mg PO DAILY Qty: 90 RF: 0 dexamethasone 2 mg tablet 6 mg PO DAILY Qty: 15 RF: 0 Continued hydralazine 10 mg Tablet 10 mg PO 4X/DAY RF: 0 lisinopril 5 mg tablet 20 mg DAILY RF: 0 aspirin 81 mg Capsule 81 mg PO DAILY RF: 0 Discontinued pioglitazone [Actos] 15 mg tablet 30 mg DAILY RF: 0 glyburide 5 mg tablet 10 mg DAILY RF: 0 Referrals / Follow Up: LANETTE CRUM [Other] - See Referral Note (in two weeks-make sure it is after your quarantine period is over ) [facility] Doctor,Out of [NON-STAFF] - Disposition Disposition (needs filled in before D/C Order can be placed): Home, Self Care Charges/Coding Visit Charges Inpatient E&M: 63094 Disch Hosp
== END 2021-09-28 18:26 | disposition home or self-care (01) | DRG 291 ==
LOC: ED 09-24 02:51 → PCU 09-24 03:17
PROVIDERS: Internal Medicine; Admitting Provider Hospitalist; Emergency Provider Emergency Medicine; Visit Provider Internal Medicine
DX: I13.0 Hypertensive heart and chronic kidney disease with heart failure and stage 1 through stage 4 chronic kidney disease, or unspecified chronic kidney disease (principal); U07.1 COVID-19; J96.01 Acute respiratory failure with hypoxia; I50.21 Acute systolic (congestive) heart failure; J12.82 Pneumonia due to coronavirus disease 2019; I42.9 Cardiomyopathy, unspecified; J40 Bronchitis, not specified as acute or chronic; D69.59 Other secondary thrombocytopenia; E66.9 Obesity, unspecified; Z68.37 Body mass index [BMI] 37.0-37.9, adult; N18.32 Chronic kidney disease, stage 3b; E11.22 Type 2 diabetes mellitus with diabetic chronic kidney disease; E11.65 Type 2 diabetes mellitus with hyperglycemia; Z66 Do not resuscitate; Z87.440 Personal history of urinary (tract) infections; Z79.82 Long term (current) use of aspirin; Z79.899 Other long term (current) drug therapy; Z87.891 Personal history of nicotine dependence
CPT/HCPCS: 36415; 71045; 71275; 80048; 80053; 80061; 82947; 82962; 83036; 83605; 83880; 84145; 84484; 85025; 85027; 87040; 87070; 87205; 87426; 87635; 93005; 93306; 94002; 94640; 97110; 97162; 97165; 97530; 97535; 99251; 99285; J7040; J7050; Q9967; U0005; A4216; G0463; J1940; U0003

== ENCOUNTER → 2022-01-13 13:24 | Outpatient (CLI) | payer MEDICARE, SELFPAY ==
[2022-01-15 12:03] LABS: Anion Gap 4 (5-15); BUN 14 mg/dL (7-18); BUN/Creat Ratio 15.1 RATIO (10-20); Calcium,Total 9.4 mg/dL (8.5-10.1); Chloride 109 mmol/L (98-107); Creatinine, Serum 0.93 mg/dL (0.55-1.02); EST Glomerular Filtration Rate 63 mL/min (>60); Est Glom Filt Rate - Afr Amer 76 mL/min (>60); Glucose 127 mg/dL (74-106); Potassium 4.1 mmol/L (3.5-5.1); Sodium Level 142 mmol/L (136-145)
== END ==
DX: I12.9 Hypertensive chronic kidney disease with stage 1 through stage 4 chronic kidney disease, or unspecified chronic kidney disease (principal); N18.9 Chronic kidney disease, unspecified
CPT/HCPCS: 80048

== ENCOUNTER → 2022-02-09 12:45 | Outpatient (CLI) | payer MEDICARE, SELFPAY ==
[2022-02-09 13:36] LABS: Color, Urine Straw (Yellow); Glucose, Dipstick Normal (Normal); Ketone-Dipstick Negative (Negative); Leukocyte Esterase-Dipstick Negative /ul (Negative); Nitrite-Dipstick Negative (Negative); Occult Blood-Urine Negative /ul (Negative); Protein-Dipstick Negative (Negative); Specific Gravity, Urine 1.005 (1.002-1.030); Urine Bilirubin Dipstick Negative (Negative); Urine Clarity Clear (Clear); Urine Urobilinogen Normal (Normal)
== END ==
DX: N39.0 Urinary tract infection, site not specified (principal)
CPT/HCPCS: 81002; 87086; 87088

== ENCOUNTER → 2024-02-03 | Outpatient (CLI) | payer MEDICARE, SELFPAY ==
--- NOTE | 2024-02-03 09:47 | VDLE_ITS ---
Reason For Study: PE RIGHT LEFT GSV is normal. FV is compressible, spontaneous, phasic, CFV is compressible, spontaneous, phasic, competent and demonstrates normal competent and demonstrates normal augmentation. augmentation. FV is compressible, spontaneous, phasic, competent and demonstrates normal augmentation. POP V is compressible, spontaneous, phasic, competent and demonstrates normal augmentation. T/P Trunk is compressible. PTV is compressible. RT PerV is compressible. Procedure This is a venous duplex using B-mode, color flow and spectral Doppler. Exam performed in department. The exam was diagnostic. VL/Venous Duplex US, Unilateral Interpretation Summary There is no evidence of right lower extremity deep vein thrombosis. Right great saphenous vein appears patent and compressible segmentally. Normal flow patterns left common f emoral vein Ordering Physician: LANETTE CRUM Referring Physician: LANETTE CRUM Performed By: Florencio Lake RVCurtis
[2024-02-03 11:25] LABS: Hematocrit 44.4 % (37-47); Hemoglobin 14.2 g/dL (12.0-15.0); Mean Corpuscular Hgb 27.2 pg (27.0-32.0); Mean Corpuscular Volume 84.9 fL (81-99); Mean Platelet Vol. 11.8 fl (6.2-12.0); Platelet Count 145 K/mm3 (150-450); RBC Distribution Width CV 13.4 % (11.6-14.6); RBC Distribution Width SD 41.9 fl (35.1-43.9); Red Blood Count 5.23 M/mm3 (4.2-5.4); White Blood Count 6.4 K/mm3 (4.4-11.0)
[2024-02-03 12:00] LABS: Anion Gap 4 (5-15); BUN 21 mg/dL (7-18); BUN/Creat Ratio 17.9 RATIO (10-20); Calcium,Total 9.3 mg/dL (8.5-10.1); Chloride 110 mmol/L (98-107); Cholesterol 153 mg/dL (200); Creatinine, Serum 1.17 mg/dL (0.55-1.02); EST Glomerular Filtration Rate 48 mL/min (>60); Est Glom Filt Rate - Afr Amer 58 mL/min (>60); Glucose 163 mg/dL (74-106); High Density Lipoprotein 49 mg/dL; Potassium 3.6 mmol/L (3.5-5.1); Sodium Level 142 mmol/L (136-145); T4 Free Direct 1.26 ng/dL (0.76-1.46); Triglycerides 75 mg/dL; Very Low Density Lipoprotein 15 mg/dL (5-40)
== END | disposition home or self-care (01) ==
PROVIDERS: PCP Internal Medicine Cardiovascular Disease; Referring Provider Internal Medicine Cardiovascular Disease; Visit Provider Internal Medicine Cardiovascular Disease
DX: I82.491 Acute embolism and thrombosis of other specified deep vein of right lower extremity (principal); I48.0 Paroxysmal atrial fibrillation; E03.9 Hypothyroidism, unspecified; N18.9 Chronic kidney disease, unspecified; R60.0 Localized edema
CPT/HCPCS: 36415; 80048; 80061; 84439; 85027; 93971

== ENCOUNTER → 2024-03-10 | Outpatient (CLI) | payer MEDICARE, SELFPAY ==
--- NOTE | 2024-03-10 11:02 | RAD_ITS ---
STUDY: X-RAY - RIGHT ANKLE REASON FOR EXAM: Female, 78 years old. ARTHRITIS, GOUT TECHNIQUE: 3 view(s) of the ankle. COMPARISON: None. FINDINGS: Normal visualized distal tibia and fibula. Normal medial and lateral malleoli. Normal tibiotalar articulation and ankle mortise. Abnormal appearance of the talus which shows lucency and flattening related to probable AVN. There are secondary degenerative changes. The visualized subtalar, talonavicular, calcaneocuboid and tarsal articulations are normal. There is no demonstrated fracture. There is nonspecific diffuse soft tissue swelling. 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 Diffuse soft tissue swelling. Electronically Signed: Harmeet Condon MD at 23:00 EDT ,
[2024-03-10 11:19] LABS: Anion Gap 1 (5-15); BUN 23 mg/dL (7-18); BUN/Creat Ratio 18.9 RATIO (10-20); Calcium,Total 9.3 mg/dL (8.5-10.1); Chloride 110 mmol/L (98-107); Creatinine, Serum 1.22 mg/dL (0.55-1.02); EST Glomerular Filtration Rate 45 mL/min (>60); Est Glom Filt Rate - Afr Amer 55 mL/min (>60); Glucose 135 mg/dL (74-106); Potassium 4.6 mmol/L (3.5-5.1); Sodium Level 141 mmol/L (136-145); Uric Acid 3.8 mg/dL (2.6-6.0)
== END | disposition home or self-care (01) ==
LOC: LAB 10:39
PROVIDERS: PCP Internal Medicine Cardiovascular Disease; Referring Provider Internal Medicine Cardiovascular Disease; Visit Provider Internal Medicine Cardiovascular Disease
DX: M12.80 Other specific arthropathies, not elsewhere classified, unspecified site (principal); E11.22 Type 2 diabetes mellitus with diabetic chronic kidney disease; M10.9 Gout, unspecified; N18.9 Chronic kidney disease, unspecified
CPT/HCPCS: 36415; 73610; 80048; 84550

== ENCOUNTER 2024-12-11 16:28 | Outpatient (RCR) | payer MEDICARE, SELFPAY ==
[2024-12-11 17:26] LABS: Hematocrit 43.6 % (37-47); Mean Corp Hgb Conc 32.1 g/dL (32-36); Mean Corpuscular Hgb 26.6 pg (27.0-32.0); Mean Corpuscular Volume 82.9 fL (81-99); Mean Platelet Vol. 10.9 fl (6.2-12.0); Platelet Count 177 K/mm3 (150-450); RBC Distribution Width SD 41.2 fl (35.1-43.9); Red Blood Count 5.26 M/mm3 (4.2-5.4); White Blood Count 7.1 K/mm3 (4.4-11.0)
[2024-12-11 17:41] LABS: International Normalized Ratio 2.7; Prothrombin Time (Protime)PT. 29.5 SECONDS (11.7-14.9)
[2024-12-11 17:59] LABS: AST(SGOT) 21 U/L (15-37); Alanine Aminotransfer ALT/SGPT 20 U/L (13-56); Albumin, Serum 3.3 g/dL (3.2-5.0); Alkaline Phosphatase 87 U/L (45-117); Anion Gap 9 (5-15); BUN 25 mg/dL (7-18); BUN/Creat Ratio 18.2 RATIO (10-20); Bilirubin, Direct 0.38 mg/dL (0.00-0.30); Calcium,Total 9.1 mg/dL (8.5-10.1); Chloride 107 mmol/L (98-107); Cholesterol 129 mg/dL (200); Creatinine, Serum 1.37 mg/dL (0.55-1.02); EST Glomerular Filtration Rate 40 mL/min (>60); Est Glom Filt Rate - Afr Amer 48 mL/min (>60); Globulin 3.5 g/dL (2.2-4.2); Glucose 143 mg/dL (74-106); High Density Lipoprotein 46 mg/dL; Potassium 3.2 mmol/L (3.5-5.1); Protein, Total 6.8 g/dL (6.4-8.2); Sodium Level 142 mmol/L (136-145); T4 Free Direct 1.62 ng/dL (0.76-1.46); Triglycerides 157 mg/dL; Uric Acid 4.9 mg/dL (2.6-6.0); Very Low Density Lipoprotein 31 mg/dL (5-40)
== END 2024-12-28 18:00 | disposition home or self-care (01) ==
LOC: LAB 16:28
PROVIDERS: PCP Internal Medicine Cardiovascular Disease; Referring Provider Internal Medicine Cardiovascular Disease; Visit Provider Internal Medicine Cardiovascular Disease
DX: I48.0 Paroxysmal atrial fibrillation (principal); Z79.01 Long term (current) use of anticoagulants; E11.9 Type 2 diabetes mellitus without complications; E78.5 Hyperlipidemia, unspecified; E66.01 Morbid (severe) obesity due to excess calories; E03.9 Hypothyroidism, unspecified; M12.80 Other specific arthropathies, not elsewhere classified, unspecified site
CPT/HCPCS: 80048; 80061; 80076; 84439; 84550; 85027; 85610